=== PATIENT | female | born 1970 | race African-American/Black ===

== ENCOUNTER 2020-10-12 18:23 | Emergency (ER) | payer MEDICAID ==
[~2020-10-12] VITALS: Ht 170.2 cm; Wt 108.0 kg
[~2020-10-12 18:23] MED LIST: ABILIFY; IVER3TAB MT; SULF1TAB48 MT; TRAM50TA3 MT; TRAZADONE
[2020-10-12 18:33] VITALS: BP 150/82
== END 2020-10-12 18:54 | disposition left against medical advice (07) ==
LOC: ER 18:23
DX: R06.02 Shortness of breath (principal); Z53.21 Procedure and treatment not carried out due to patient leaving prior to being seen by health care provider

== ENCOUNTER 2021-01-28 23:23 | Emergency (ER) | payer MEDICAID ==
[~2021-01-28] VITALS: Ht 167.6 cm; Wt 113.0 kg
[2021-01-29 02:53] LABS: *BARBITURATES SCREEN URINE NEGATIVE (NEGATIVE); *BENZODIAZEPINES SCREEN URINE NEGATIVE (NEGATIVE); METHADONE URINE SCREEN NEGATIVE (NEGATIVE); OPIATES URINE SCREEN NEGATIVE (NEGATIVE)
[2021-01-29 02:54] LABS: CANNABINOID URINE SCREEN NEGATIVE (NEGATIVE)
[2021-01-29 02:54] LABS: BASOPHILS % 0.3 % (0.0-2.0); EOSINOPHILS % 3.4 % (0.0-5.0); HEMATOCRIT. 36.9 % (36.0-48.0); HEMOGLOBIN. 12.1 g/dL (12.0-16.0); LYMPHOCYTES % 31.8 % (20.0-50.0); MEAN CORPUSCULAR HEMOGLOBIN 30.7 pg (28.0-32.0); MEAN CORPUSCULAR VOLUME 93.7 fL (81.0-99.0); MEAN PLATELET VOLUME 6.7 fl (7.4-10.4); MONOCYTES % 10.3 % (2.0-8.0); NEUTROPHILS % 54.2 % (40.0-76.0); PLATELET 274 x1000/uL (130-400); RED BLOOD CELL COUNT 3.93 mill/uL (4.2-5.4); RED CELL DISTRIBUTION WIDTH 14.9 % (11.6-14.6)
[2021-01-29 03:02] LABS: CHLORIDE 105 mEq/L (98-107)
[2021-01-29 03:05] LABS: *AMPHETAMINES SCREEN URINE PRESUMTIVE POSITIVE (NEGATIVE); *COCAINE SCREEN URINE PRESUMTIVE POSITIVE (NEGATIVE); PHENCYCLIDINE URINE SCREEN PRESUMTIVE POSITIVE (NEGATIVE)
[2021-01-29 03:06] LABS: ETHANOL BLOOD < 10 mg/dL
[2021-01-29 05:35] VITALS: BP 125/78
== END 2021-01-29 05:37 | disposition home or self-care (01) ==
LOC: ER 23:49
DX: F16.10 Hallucinogen abuse, uncomplicated (principal); F15.10 Other stimulant abuse, uncomplicated; F14.10 Cocaine abuse, uncomplicated; E11.9 Type 2 diabetes mellitus without complications; I10 Essential (primary) hypertension; J45.909 Unspecified asthma, uncomplicated; Z20.822 Contact with and (suspected) exposure to COVID-19; Z86.59 Personal history of other mental and behavioral disorders; Z98.890 Other specified postprocedural states
CPT/HCPCS: 36415; 71045; 71250; 72128; 80053; 80305; 80320; 83880; 84484; 85025; 87426; 93005; 99285; G0480

== ENCOUNTER 2021-03-29 11:16 | Emergency (ER) | payer MEDICAID ==
[~2021-03-29] VITALS: Ht 167.6 cm; Wt 77.2 kg
[2021-03-29 11:23] VITALS: BP 150/80
[2021-03-29 12:07] LABS: CHLORIDE 105 mEq/L (98-107)
[2021-03-29 12:14] LABS: BASOPHILS % 0.3 % (0.0-2.0); EOSINOPHILS % 4.4 % (0.0-5.0); HEMATOCRIT. 39.2 % (36.0-48.0); HEMOGLOBIN. 12.7 g/dL (12.0-16.0); LYMPHOCYTES % 19.2 % (20.0-50.0); MEAN CORPUSCULAR HEMOGLOBIN 30.5 pg (28.0-32.0); MONOCYTES % 10.1 % (2.0-8.0); RED BLOOD CELL COUNT 4.17 mill/uL (4.2-5.4); RED CELL DISTRIBUTION WIDTH 15.8 % (11.6-14.6)
== END 2021-03-29 17:24 | disposition left against medical advice (07) ==
LOC: ER 11:16
DX: F41.9 Anxiety disorder, unspecified (principal); E11.9 Type 2 diabetes mellitus without complications; J45.909 Unspecified asthma, uncomplicated; Z86.59 Personal history of other mental and behavioral disorders; Z98.890 Other specified postprocedural states
CPT/HCPCS: 36415; 71045; 80053; 85025; 99284

== ENCOUNTER 2021-04-07 06:01 | Inpatient (IN) | payer MEDICAID ==
[~2021-04-07] VITALS: Ht 172.7 cm; Wt 92.5 kg
[2021-04-07 06:39] LABS: HEMATOCRIT. 40.2 % (36.0-48.0); HEMOGLOBIN. 13.6 g/dL (12.0-16.0); MEAN CORPUSCULAR HEMOGLOBIN 31.3 pg (28.0-32.0); MEAN CORPUSCULAR VOLUME 92.9 fL (81.0-99.0); PLATELET 308 x1000/uL (130-400); RED BLOOD CELL COUNT 4.33 mill/uL (4.2-5.4); RED CELL DISTRIBUTION WIDTH 16.2 % (11.6-14.6)
[2021-04-07] MEDS ORDERED: CLINDAMYCIN 600 MG in DEXTROSE 5% WATER 50 ML IV ONE (07:00)
[2021-04-07] MEDS ORDERED: CEFTRIAXONE 1 G PREMIX 50 ML IV ONE (07:00)
[2021-04-07 07:01] LABS: CLARITY URINE TURBID (CLEAR); COLOR URINE RED (YELLOW); KETONES URINE TRACE (NEGATIVE); LEUKOCYTE ESTERASE URINE 1+ (NEGATIVE); NITRITE URINE POSITIVE (NEGATIVE); OCCULT BLOOD URINE 3+ (NEGATIVE); PH URINE 5.5 (4.5-8.0); PROTEIN URINE 2+ (NEGATIVE); SPECIFIC GRAVITY URINE 1.026 (1.005-1.030)
[2021-04-07 07:14] LABS: PLATELET ESTIMATE NORMAL
[2021-04-07 07:37] LABS: *BARBITURATES SCREEN URINE NEGATIVE (NEGATIVE); *BENZODIAZEPINES SCREEN URINE NEGATIVE (NEGATIVE); *COCAINE SCREEN URINE PRESUMTIVE POSITIVE (NEGATIVE)
[2021-04-07 07:38] LABS: *AMPHETAMINES SCREEN URINE PRESUMTIVE POSITIVE (NEGATIVE); CANNABINOID URINE SCREEN PRESUMTIVE POSITIVE (NEGATIVE); METHADONE URINE SCREEN NEGATIVE (NEGATIVE); OPIATES URINE SCREEN NEGATIVE (NEGATIVE); PHENCYCLIDINE URINE SCREEN PRESUMTIVE POSITIVE (NEGATIVE)
[2021-04-07] MEDS ORDERED: CLINDAMYCIN 600MG PREMIX 50 ML IV NR (08:15)
[2021-04-07 08:42] LABS: BG BASE EXCESS 3.9 mmol/L (-2.0-2.0); BG CARBOXYHEMOGLOBIN 4.5 % (0.5-1.5); BG DEOXYHEMOGLOBIN 5.1 % (0.0-5.0); BG FRACTION INSPIRED OXYGEN 40; BG HCO3 ACT 33.4 mmol/L (22.0-26.0); BG METHEMOGLOBIN 0.2 % (0.0-1.5); BG OXYGEN SATURATION 94.6 % (92.0-98.5); BG OXYHEMOGLOBIN 90.2 % (94.0-97.0); BG PCO2 75.7 mmHg (35.0-45.0); BG PH 7.263 (7.350-7.450); BG PO2 81.8 mmHg (75.0-100.0); BG SAMPLE SITE RIGHT RADIAL; BG VENT MODE MASK - BIPAP
[2021-04-07 09:14] LABS: CHLORIDE 97 mEq/L (98-107)
[2021-04-07 09:21] LABS: ETHANOL BLOOD < 10 mg/dL
[2021-04-07] MEDS ORDERED: ALBUTEROL 6.7GM HFA INHALER ORI PRN (09:45)
[2021-04-07] MEDS ORDERED: CEFTRIAXONE 1 G PREMIX 50 ML IV SCH (09:45)
[2021-04-07] MEDS: DEXAMETHASONE 10 MG/ML VIAL IV SCH (10:26)
[2021-04-07 13:49] VITALS: BP 127/81
[2021-04-07 14:00] VITALS: BP 159/78
[2021-04-07] MEDS ORDERED: DEXTROSE 50% WATER 50ML SYRINGE IV PRN (14:30)
[2021-04-07] MEDS: FUROSEMIDE 40MG/4ML VIAL IVP SCH (15:31)
[2021-04-07] MEDS: ENOXAPARIN 30MG/0.3ML SYR SUBCUT SCH (15:31)
[2021-04-07 16:00] VITALS: BP 115/76
[2021-04-07] MEDS: BLOOD SUGAR DIAGNOSTIC STRIP TEST SCH ×2 (16:47→21:28)
[2021-04-07] MEDS: INSULIN LISPRO 100 UNITS/ML SUBCUT SCH ×2 (17:20→21:30)
[2021-04-07] MEDS: ACETAMINOPHEN 325MG TABLET PO PRN ×2 (17:58→21:32)
[2021-04-07 20:00] VITALS: BP 107/65
[2021-04-07] MEDS ORDERED: VANCOMYCIN 1,750 MG in DEXT 5% WATER 500 ML IV NR (23:00)
[2021-04-08] VITALS: BP 111/68
[2021-04-08] MEDS: ACETAMINOPHEN 325MG TABLET PO PRN (00:11)
[2021-04-08] MEDS: LORAZEPAM 2MG/ML CPJ IV PRN (00:55)
[2021-04-08 04:00] VITALS: BP 108/55
[2021-04-08] MEDS: ENOXAPARIN 30MG/0.3ML SYR SUBCUT SCH ×2 (05:57→17:10)
[2021-04-08] MEDS: INSULIN LISPRO 100 UNITS/ML SUBCUT SCH ×4 (05:57→21:26)
[2021-04-08] MEDS: BLOOD SUGAR DIAGNOSTIC STRIP TEST SCH ×4 (05:57→21:24)
[2021-04-08 08:00] VITALS: BP 109/57
[2021-04-08] MEDS: DEXAMETHASONE 10 MG/ML VIAL IV SCH (08:20)
[2021-04-08] MEDS: FUROSEMIDE 40MG/4ML VIAL IVP SCH (08:20)
[2021-04-08] MEDS: CEFTRIAXONE 1,000 MG in DEXTROSE 5% WATER 50 ML IV SCH (08:31)
[2021-04-08 09:29] LABS: HEMOGLOBIN. 12.8 g/dL (12.0-16.0); MEAN CORPUSCULAR HEMOGLOBIN 30.4 pg (28.0-32.0); MEAN PLATELET VOLUME 8.4 fl (7.4-10.4); PLATELET 310 x1000/uL (130-400); RED BLOOD CELL COUNT 4.21 mill/uL (4.2-5.4)
[2021-04-08 09:31] LABS: BG BASE EXCESS 9.5 mmol/L (-2.0-2.0); BG CARBOXYHEMOGLOBIN 1.4 % (0.5-1.5); BG DEOXYHEMOGLOBIN 8.1 % (0.0-5.0); BG FRACTION INSPIRED OXYGEN 40; BG HCO3 ACT 38.2 mmol/L (22.0-26.0); BG METHEMOGLOBIN 0.1 % (0.0-1.5); BG OXYGEN SATURATION 91.8 % (92.0-98.5); BG OXYHEMOGLOBIN 90.4 % (94.0-97.0); BG PCO2 74.2 mmHg (35.0-45.0); BG PO2 65.9 mmHg (75.0-100.0); BG SAMPLE SITE LEFT BRACHIAL; BG TOTAL RESPIRATORY RATE 32 b/min; BG VENT MODE MASK - BIPAP
[2021-04-08 09:40] LABS: CHLORIDE 98 mEq/L (98-107)
[2021-04-08] MEDS ORDERED: VANCOMYCIN 1G PREMIX 200 ML IV SCH (11:00)
[2021-04-08 12:00] VITALS: BP 150/64
[2021-04-08 14:52] LABS: PLATELET ESTIMATE NORMAL
[2021-04-08 16:00] VITALS: BP 120/88
[2021-04-08] MEDS: CHLORDIAZEPOXIDE 25MG CAPSULE PO SCH ×2 (16:19→21:16)
[2021-04-08 20:00] VITALS: BP 119/71
[2021-04-08] MEDS: ONDANSETRON HCL 4MG/2ML INJ IV PRN (21:15)
[2021-04-08] MEDS: GUAIFENESIN 600MG ER TABLET PO SCH (21:16)
[2021-04-09] VITALS: BP 95/55
[2021-04-09 04:42] VITALS: BP 102/57
[2021-04-09] MEDS: CHLORDIAZEPOXIDE 25MG CAPSULE PO SCH ×2 (06:09→14:37)
[2021-04-09] MEDS: ENOXAPARIN 30MG/0.3ML SYR SUBCUT SCH ×2 (06:10→17:25)
[2021-04-09] MEDS: BLOOD SUGAR DIAGNOSTIC STRIP TEST SCH ×4 (06:16→20:19)
[2021-04-09] MEDS: INSULIN LISPRO 100 UNITS/ML SUBCUT SCH ×4 (06:16→21:07)
[2021-04-09 08:00] VITALS: BP 110/66
[2021-04-09] MEDS: GUAIFENESIN 600MG ER TABLET PO SCH ×2 (08:39→21:06)
[2021-04-09] MEDS: DEXAMETHASONE 10 MG/ML VIAL IV SCH (08:39)
[2021-04-09] MEDS: FUROSEMIDE 40MG/4ML VIAL IVP SCH (08:39)
[2021-04-09] MEDS: CEFTRIAXONE 1,000 MG in DEXTROSE 5% WATER 50 ML IV SCH (08:40)
[2021-04-09] MEDS: LORAZEPAM 2MG/ML CPJ IV PRN ×2 (08:43→21:06)
[2021-04-09] MEDS: VANCOMYCIN 1G PREMIX 200 ML IV SCH (08:44)
[2021-04-09 09:23] LABS: HEMATOCRIT. 36.4 % (36.0-48.0); HEMOGLOBIN. 11.8 g/dL (12.0-16.0); MEAN CORPUSCULAR HEMOGLOBIN 30.7 pg (28.0-32.0); MEAN PLATELET VOLUME 8.1 fl (7.4-10.4); PLATELET 397 x1000/uL (130-400); RED BLOOD CELL COUNT 3.83 mill/uL (4.2-5.4); RED CELL DISTRIBUTION WIDTH 15.9 % (11.6-14.6)
[2021-04-09 09:41] LABS: CHLORIDE 97 mEq/L (98-107)
[2021-04-09 11:44] LABS: BG BASE EXCESS 11.8 mmol/L (-2.0-2.0); BG CARBOXYHEMOGLOBIN 0.8 % (0.5-1.5); BG DEOXYHEMOGLOBIN 6.3 % (0.0-5.0); BG FRACTION INSPIRED OXYGEN 40; BG HCO3 ACT 40.4 mmol/L (22.0-26.0); BG METHEMOGLOBIN 0.3 % (0.0-1.5); BG OXYGEN SATURATION 93.6 % (92.0-98.5); BG OXYHEMOGLOBIN 92.6 % (94.0-97.0); BG PCO2 73.6 mmHg (35.0-45.0); BG PH 7.357 (7.350-7.450); BG PO2 71.9 mmHg (75.0-100.0); BG SAMPLE SITE LEFT RADIAL; BG TOTAL HEMOGLOBIN 12.9 g/dL (12.0-18.0); BG TOTAL RESPIRATORY RATE 28 b/min; BG VENT MODE MASK - BIPAP
[2021-04-09 12:00] VITALS: BP 115/88
[2021-04-09] MEDS: ACETAMINOPHEN 325MG TABLET PO PRN (12:27)
[2021-04-09 16:00] VITALS: BP 117/76
[2021-04-09 17:13] LABS: PLATELET ESTIMATE NORMAL
[2021-04-09 19:43] VITALS: BP 122/76
[2021-04-10 00:23] VITALS: BP 148/87
[2021-04-10] MEDS: ACETAMINOPHEN 325MG TABLET PO PRN ×2 (00:31→22:12)
[2021-04-10] MEDS: VANCOMYCIN 1G PREMIX 200 ML IV SCH (03:51)
[2021-04-10 04:02] VITALS: BP 112/69
[2021-04-10] MEDS: BLOOD SUGAR DIAGNOSTIC STRIP TEST SCH ×4 (05:54→21:00)
[2021-04-10] MEDS: INSULIN LISPRO 100 UNITS/ML SUBCUT SCH ×4 (05:54→21:00)
[2021-04-10] MEDS: ENOXAPARIN 30MG/0.3ML SYR SUBCUT SCH ×2 (06:00→17:04)
[2021-04-10 08:00] VITALS: BP 127/80
[2021-04-10] MEDS: DEXAMETHASONE 10 MG/ML VIAL IV SCH (08:20)
[2021-04-10] MEDS: FUROSEMIDE 40MG/4ML VIAL IVP SCH (08:20)
[2021-04-10] MEDS: LORAZEPAM 2MG/ML CPJ IV PRN ×2 (08:20→17:58)
[2021-04-10] MEDS: CEFTRIAXONE 1,000 MG in DEXTROSE 5% WATER 50 ML IV SCH (08:20)
[2021-04-10] MEDS: GUAIFENESIN 600MG ER TABLET PO SCH ×2 (08:20→22:12)
[2021-04-10 08:38] LABS: CHLORIDE 96 mEq/L (98-107)
[2021-04-10 12:00] VITALS: BP 110/59
[2021-04-10 16:00] VITALS: BP 141/64
[2021-04-10] MEDS ORDERED: VANCOMYCIN 1G PREMIX 200 ML IV SCH (18:00)
[2021-04-10 20:00] VITALS: BP 126/78
[2021-04-11] VITALS: BP 124/79
[2021-04-11] MEDS: LORAZEPAM 2MG/ML CPJ IV PRN (00:58)
[2021-04-11 04:00] VITALS: BP 123/75
[2021-04-11] MEDS: ENOXAPARIN 30MG/0.3ML SYR SUBCUT SCH ×2 (06:25→18:00)
[2021-04-11] MEDS: INSULIN LISPRO 100 UNITS/ML SUBCUT SCH ×4 (06:25→20:47)
[2021-04-11] MEDS: BLOOD SUGAR DIAGNOSTIC STRIP TEST SCH ×5 (06:25→20:47)
[2021-04-11 08:00] VITALS: BP 140/90
[2021-04-11] MEDS: GUAIFENESIN 600MG ER TABLET PO SCH ×2 (09:00→20:56)
[2021-04-11] MEDS: CEFTRIAXONE 1,000 MG in DEXTROSE 5% WATER 50 ML IV SCH (09:00)
[2021-04-11] MEDS: DEXAMETHASONE 10 MG/ML VIAL IV SCH (09:00)
[2021-04-11] MEDS: FUROSEMIDE 40MG/4ML VIAL IVP SCH (09:00)
[2021-04-11 09:01] LABS: BG BASE EXCESS 15.4 mmol/L (-2.0-2.0); BG CARBOXYHEMOGLOBIN 0.3 % (0.5-1.5); BG DEOXYHEMOGLOBIN 2.5 % (0.0-5.0); BG FRACTION INSPIRED OXYGEN 40; BG HCO3 ACT 42.3 mmol/L (22.0-26.0); BG METHEMOGLOBIN 0.1 % (0.0-1.5); BG OXYGEN SATURATION 97.5 % (92.0-98.5); BG OXYHEMOGLOBIN 97.1 % (94.0-97.0); BG PCO2 62.2 mmHg (35.0-45.0); BG PO2 97.9 mmHg (75.0-100.0); BG SAMPLE SITE RIGHT RADIAL; BG TOTAL HEMOGLOBIN 12.7 g/dL (12.0-18.0); BG TOTAL RESPIRATORY RATE 26 b/min; BG VENT MODE MASK - BIPAP
[2021-04-11 12:00] VITALS: BP 134/83
[2021-04-11 16:00] VITALS: BP 138/82
[2021-04-11 20:00] VITALS: BP 125/79
[2021-04-11] MEDS: ACETAMINOPHEN 325MG TABLET PO PRN (20:56)
[2021-04-12] VITALS: BP 110/59
[2021-04-12] MEDS: LORAZEPAM 2MG/ML CPJ IV PRN ×3 (00:07→22:50)
[2021-04-12 04:00] VITALS: BP 138/87
[2021-04-12] MEDS: ENOXAPARIN 30MG/0.3ML SYR SUBCUT SCH ×2 (06:16→18:04)
[2021-04-12] MEDS: BLOOD SUGAR DIAGNOSTIC STRIP TEST SCH ×4 (06:49→21:00)
[2021-04-12] MEDS: INSULIN LISPRO 100 UNITS/ML SUBCUT SCH ×4 (07:40→21:00)
[2021-04-12 07:48] VITALS: BP 140/81
[2021-04-12] MEDS: DEXAMETHASONE 10 MG/ML VIAL IV SCH (08:15)
[2021-04-12] MEDS: FUROSEMIDE 40MG/4ML VIAL IVP SCH (08:15)
[2021-04-12] MEDS: GUAIFENESIN 600MG ER TABLET PO SCH ×2 (08:15→21:28)
[2021-04-12 12:00] VITALS: BP 124/82
[2021-04-12] MEDS ORDERED: LIDOCAINE HCL/PF 1% 2ML VIAL ONE (12:57)
[2021-04-12 13:34] LABS: BG BASE EXCESS 19.5 mmol/L (-2.0-2.0); BG DEOXYHEMOGLOBIN 22.7 % (0.0-5.0); BG HCO3 ACT 49.2 mmol/L (22.0-26.0); BG METHEMOGLOBIN 0.3 % (0.0-1.5); BG PCO2 82.9 mmHg (35.0-45.0); BG PH 7.391 (7.350-7.450); BG PO2 42.2 mmHg (75.0-100.0); BG SAMPLE SITE RIGHT RADIAL; BG TOTAL HEMOGLOBIN 13.8 g/dL (12.0-18.0); BG VENT MODE ROOM AIR
[2021-04-12] MEDS: CEFTRIAXONE 1,000 MG in DEXTROSE 5% WATER 50 ML IV SCH (15:08)
[2021-04-12 16:27] VITALS: BP 128/76
[2021-04-12 17:44] LABS: BG BASE EXCESS 16.4 mmol/L (-2.0-2.0); BG CARBOXYHEMOGLOBIN 0.6 % (0.5-1.5); BG DEOXYHEMOGLOBIN 2.9 % (0.0-5.0); BG HCO3 ACT 47.3 mmol/L (22.0-26.0); BG METHEMOGLOBIN 0.3 % (0.0-1.5); BG OXYGEN SATURATION 97.1 % (92.0-98.5); BG OXYHEMOGLOBIN 96.2 % (94.0-97.0); BG PCO2 93.6 mmHg (35.0-45.0); BG PH 7.321 (7.350-7.450); BG PO2 104.3 mmHg (75.0-100.0); BG SAMPLE SITE RIGHT RADIAL; BG TOTAL HEMOGLOBIN 13.8 g/dL (12.0-18.0); BG VENT MODE MASK - SIMPLE
[2021-04-12 20:46] VITALS: BP 122/57
[2021-04-12] MEDS: OLANZAPINE 5MG TABLET ODT PO SCH (21:00)
[2021-04-13] VITALS: BP 136/81
[2021-04-13 04:00] VITALS: BP 119/82
[2021-04-13] MEDS: ENOXAPARIN 30MG/0.3ML SYR SUBCUT SCH ×2 (05:10→17:00)
[2021-04-13] MEDS: BLOOD SUGAR DIAGNOSTIC STRIP TEST SCH ×4 (07:01→20:46)
[2021-04-13] MEDS: LORAZEPAM 2MG/ML CPJ IV PRN ×2 (07:41→16:54)
[2021-04-13] MEDS: INSULIN LISPRO 100 UNITS/ML SUBCUT SCH ×4 (07:48→20:46)
[2021-04-13 08:00] VITALS: BP 141/87
[2021-04-13] MEDS: GUAIFENESIN 600MG ER TABLET PO SCH ×2 (08:15→20:45)
[2021-04-13] MEDS: OLANZAPINE 5MG TABLET ODT PO SCH ×2 (08:15→20:45)
[2021-04-13] MEDS: DEXAMETHASONE 10 MG/ML VIAL IV SCH (08:16)
[2021-04-13] MEDS: FUROSEMIDE 40MG/4ML VIAL IVP SCH (08:16)
[2021-04-13 09:38] LABS: BG BASE EXCESS 15.4 mmol/L (-2.0-2.0); BG CARBOXYHEMOGLOBIN 0.4 % (0.5-1.5); BG DEOXYHEMOGLOBIN 2.1 % (0.0-5.0); BG FRACTION INSPIRED OXYGEN 60; BG HCO3 ACT 43.7 mmol/L (22.0-26.0); BG METHEMOGLOBIN 0.3 % (0.0-1.5); BG OXYGEN SATURATION 97.9 % (92.0-98.5); BG OXYHEMOGLOBIN 97.2 % (94.0-97.0); BG PCO2 71.2 mmHg (35.0-45.0); BG PH 7.406 (7.350-7.450); BG PO2 105.7 mmHg (75.0-100.0); BG SAMPLE SITE RIGHT RADIAL; BG TOTAL HEMOGLOBIN 13.7 g/dL (12.0-18.0); BG VENT MODE MASK - SIMPLE
[2021-04-13 12:00] VITALS: BP 126/83
[2021-04-13 16:00] VITALS: BP 129/78
[2021-04-13 20:00] VITALS: BP 121/81
[2021-04-14] VITALS: BP 121/77
[2021-04-14 04:00] VITALS: BP 110/61
[2021-04-14] MEDS: ENOXAPARIN 30MG/0.3ML SYR SUBCUT SCH (06:00)
[2021-04-14] MEDS: BLOOD SUGAR DIAGNOSTIC STRIP TEST SCH ×4 (07:28→21:08)
[2021-04-14] MEDS: INSULIN LISPRO 100 UNITS/ML SUBCUT SCH ×4 (07:29→21:00)
[2021-04-14 08:00] VITALS: BP 108/71
[2021-04-14 08:05] LABS: INR 1.1; PROTHROMBIN TIME 12.1 sec (9.6-11.0)
[2021-04-14] MEDS: OLANZAPINE 5MG TABLET ODT PO SCH ×2 (09:04→21:08)
[2021-04-14] MEDS: FUROSEMIDE 40MG/4ML VIAL IVP SCH (09:04)
[2021-04-14] MEDS: DEXAMETHASONE 10 MG/ML VIAL IV SCH (09:05)
[2021-04-14] MEDS: GUAIFENESIN 600MG ER TABLET PO SCH ×2 (09:05→21:08)
[2021-04-14 12:00] VITALS: BP 111/65
[2021-04-14 16:00] VITALS: BP 124/56
[2021-04-14] MEDS: ACETAMINOPHEN 325MG TABLET PO PRN (16:41)
[2021-04-14] MEDS: ONDANSETRON HCL 4MG/2ML INJ IV PRN (18:31)
[2021-04-14] MEDS ORDERED: HYDROCODONE/ACETAMINOPHEN 5/325MG TABLET PO NR (19:30)
[2021-04-14 20:00] VITALS: BP 147/93
[2021-04-15] VITALS: BP 139/74
[2021-04-15 04:00] VITALS: BP 130/83
[2021-04-15] MEDS: BLOOD SUGAR DIAGNOSTIC STRIP TEST SCH ×4 (07:24→20:42)
[2021-04-15] MEDS: INSULIN LISPRO 100 UNITS/ML SUBCUT SCH ×4 (07:55→20:42)
[2021-04-15] MEDS: CEFTRIAXONE 2 G in DEXTROSE 5% WATER 50 ML IV SCH ×2 (07:55→20:41)
[2021-04-15 08:00] VITALS: BP 130/79
[2021-04-15] MEDS ORDERED: LIDOCAINE HCL 1% 20ML VIAL (Pyxis) INJ ONE (08:41)
[2021-04-15] MEDS: GUAIFENESIN 600MG ER TABLET PO SCH ×2 (09:00→20:41)
[2021-04-15] MEDS: OLANZAPINE 5MG TABLET ODT PO SCH ×2 (09:00→20:41)
[2021-04-15] MEDS: FUROSEMIDE 40MG/4ML VIAL IVP SCH (09:20)
[2021-04-15] MEDS: DEXAMETHASONE 10 MG/ML VIAL IV SCH (09:21)
[2021-04-15] MEDS: LORAZEPAM 2MG/ML CPJ IV PRN (11:26)
[2021-04-15] MEDS ORDERED: SODIUM BICARBONATE 4% (2.4MEQ) 5ML VIAL IV ONE (11:36)
[2021-04-15 12:00] VITALS: BP 130/76
[2021-04-15 16:00] VITALS: BP 116/47
[2021-04-15 20:00] VITALS: BP 117/67
[2021-04-15 20:53] LABS: BASOPHILS % 0.7 % (0.0-2.0); EOSINOPHILS % 0.3 % (0.0-5.0); HEMATOCRIT. 38.7 % (36.0-48.0); HEMOGLOBIN. 12.4 g/dL (12.0-16.0); LYMPHOCYTES % 9.5 % (20.0-50.0); MEAN CORPUSCULAR HEMOGLOBIN 30.2 pg (28.0-32.0); MEAN PLATELET VOLUME 7.4 fl (7.4-10.4); MONOCYTES % 5.8 % (2.0-8.0); NEUTROPHILS % 83.7 % (40.0-76.0); PLATELET 569 x1000/uL (130-400); RED BLOOD CELL COUNT 4.12 mill/uL (4.2-5.4); RED CELL DISTRIBUTION WIDTH 14.8 % (11.6-14.6)
[2021-04-15 21:00] LABS: CHLORIDE 89 mEq/L (98-107)
[2021-04-16] VITALS: BP 114/65
[2021-04-16] MEDS: LORAZEPAM 2MG/ML CPJ IV PRN (00:03)
[2021-04-16 04:00] VITALS: BP 117/67
[2021-04-16] MEDS: BLOOD SUGAR DIAGNOSTIC STRIP TEST SCH ×4 (07:39→21:00)
[2021-04-16] MEDS: OLANZAPINE 5MG TABLET ODT PO SCH ×2 (09:01→20:36)
[2021-04-16] MEDS: DEXAMETHASONE 10 MG/ML VIAL IV SCH (09:01)
[2021-04-16] MEDS: INSULIN LISPRO 100 UNITS/ML SUBCUT SCH ×4 (09:01→20:42)
[2021-04-16] MEDS: FUROSEMIDE 40MG/4ML VIAL IVP SCH (09:01)
[2021-04-16] MEDS: GUAIFENESIN 600MG ER TABLET PO SCH ×2 (09:01→20:36)
[2021-04-16] MEDS ORDERED: AMOX-424 MT (09:52)
[2021-04-16] MEDS ORDERED: ALBU18HF2 IH (11:42)
[2021-04-16] MEDS ORDERED: FURO-151 MT (11:42)
[2021-04-16 12:00] VITALS: BP 112/50
[2021-04-16 16:00] VITALS: BP 134/81
[2021-04-16 20:00] VITALS: BP 130/73
[2021-04-16] MEDS: CEFTRIAXONE 2 G in DEXTROSE 5% WATER 50 ML IV SCH (20:36)
[2021-04-16] MEDS: ACETAMINOPHEN 325MG TABLET PO PRN (20:36)
[2021-04-17] VITALS: BP 113/53
[2021-04-17 04:00] VITALS: BP 120/60
[2021-04-17] MEDS: BLOOD SUGAR DIAGNOSTIC STRIP TEST SCH (06:04)
[2021-04-17] MEDS: INSULIN LISPRO 100 UNITS/ML SUBCUT SCH (06:04)
[2021-04-17 08:00] VITALS: BP 124/82
[2021-04-17] MEDS: FUROSEMIDE 40MG/4ML VIAL IVP SCH (09:00)
[2021-04-17] MEDS: OLANZAPINE 5MG TABLET ODT PO SCH (09:01)
[2021-04-17] MEDS: DEXAMETHASONE 10 MG/ML VIAL IV SCH (09:01)
[2021-04-17] MEDS: GUAIFENESIN 600MG ER TABLET PO SCH (09:01)
== END 2021-04-17 10:07 | disposition home health service (06) | DRG 720 ==
LOC: ER 06:07 → 7EST 07:44 → 7WST 04-11 16:52
PROVIDERS: ADMIT Internal Medicine; ATTEND Internal Medicine
PROC: 5A09557 Assistance with Respiratory Ventilation, Greater than 96 Consecutive Hours, Continuous Positive Airway Pressure (ICD-10-PCS; 2021-04-07)
PROC: 0W993ZZ Drainage of Right Pleural Cavity, Percutaneous Approach (ICD-10-PCS; principal; 2021-04-15)
DX: A41.89 Other specified sepsis (principal); N17.0 Acute kidney failure with tubular necrosis; J12.82 Pneumonia due to coronavirus disease 2019; J69.0 Pneumonitis due to inhalation of food and vomit; E43 Unspecified severe protein-calorie malnutrition; J96.01 Acute respiratory failure with hypoxia; J96.02 Acute respiratory failure with hypercapnia; U07.1 COVID-19; D68.59 Other primary thrombophilia; J91.8 Pleural effusion in other conditions classified elsewhere; J68.0 Bronchitis and pneumonitis due to chemicals, gases, fumes and vapors; E87.8 Other disorders of electrolyte and fluid balance, not elsewhere classified; E11.9 Type 2 diabetes mellitus without complications; T40.5X1A Poisoning by cocaine, accidental (unintentional), initial encounter; E66.9 Obesity, unspecified; F14.10 Cocaine abuse, uncomplicated; F17.210 Nicotine dependence, cigarettes, uncomplicated; F15.10 Other stimulant abuse, uncomplicated; F16.10 Hallucinogen abuse, uncomplicated; F12.10 Cannabis abuse, uncomplicated; I11.0 Hypertensive heart disease with heart failure; I50.9 Heart failure, unspecified; F20.9 Schizophrenia, unspecified; F31.9 Bipolar disorder, unspecified; F41.9 Anxiety disorder, unspecified; F29 Unspecified psychosis not due to a substance or known physiological condition; T46.5X6A Underdosing of other antihypertensive drugs, initial encounter; J45.909 Unspecified asthma, uncomplicated; N39.0 Urinary tract infection, site not specified; E87.1 Hypo-osmolality and hyponatremia; Y92.89 Other specified places as the place of occurrence of the external cause; Z68.31 Body mass index [BMI] 31.0-31.9, adult; Z71.51 Drug abuse counseling and surveillance of drug abuser
CPT/HCPCS: 32555; 36415; 36600; 71045; 71250; 80048; 80053; 80202; 80305; 80320; 81003; 82040; 82375; 82728; 82805; 82962; 83036; 83605; 83615; 83880; 84145; 84484; 85025; 85379; 86140; 87077; 87186; 87426; 87804; 88108; 88312; 93005; 94660; 99291; C1893; J0696; J1100; J1650; J1815; J1940; J2060; J2405; J3370; J3490; J7040; J7060; G0480

== ENCOUNTER 2021-05-06 22:00 | Emergency (ER) | payer MEDICAID ==
[~2021-05-06] VITALS: Ht 165.1 cm; Wt 114.0 kg
[~2021-05-06 22:00] MED LIST changes: +ALBU18HF2 IH; +AMOX-424 MT; +FURO-151 MT; -IVER3TAB MT; -SULF1TAB48 MT
[2021-05-06 22:30] VITALS: BP 176/92
[2021-05-06] MEDS ORDERED: ASPIRIN 81MG TABLET PO ONE (23:00)
[2021-05-06 23:49] LABS: *AMPHETAMINES SCREEN URINE PRESUMTIVE POSITIVE (NEGATIVE); *BARBITURATES SCREEN URINE NEGATIVE (NEGATIVE); CANNABINOID URINE SCREEN NEGATIVE (NEGATIVE); PHENCYCLIDINE URINE SCREEN PRESUMTIVE POSITIVE (NEGATIVE)
[2021-05-06 23:51] LABS: *BENZODIAZEPINES SCREEN URINE NEGATIVE (NEGATIVE); *COCAINE SCREEN URINE PRESUMTIVE POSITIVE (NEGATIVE); METHADONE URINE SCREEN NEGATIVE (NEGATIVE); OPIATES URINE SCREEN NEGATIVE (NEGATIVE)
[2021-05-06 23:54] LABS: HEMATOCRIT. 37.5 % (36.0-48.0); HEMOGLOBIN. 12.1 g/dL (12.0-16.0); MEAN CORPUSCULAR HEMOGLOBIN 29.5 pg (28.0-32.0); MEAN CORPUSCULAR VOLUME 91.3 fL (81.0-99.0); MEAN PLATELET VOLUME 7.7 fl (7.4-10.4); RED BLOOD CELL COUNT 4.11 mill/uL (4.2-5.4); RED CELL DISTRIBUTION WIDTH 15.1 % (11.6-14.6)
[2021-05-07 00:02] LABS: CHLORIDE 100 mEq/L (98-107)
[2021-05-07 00:07] LABS: ETHANOL BLOOD < 10 mg/dL
[2021-05-07 00:22] LABS: PLATELET 363 x1000/uL (130-400)
[2021-05-07 02:43] LABS: PLATELET ESTIMATE NORMAL
== END 2021-05-07 03:40 | disposition home or self-care (01) ==
LOC: ER 22:00
DX: R07.89 Other chest pain (principal); F17.290 Nicotine dependence, other tobacco product, uncomplicated; F14.10 Cocaine abuse, uncomplicated; F15.10 Other stimulant abuse, uncomplicated; F16.10 Hallucinogen abuse, uncomplicated; Z86.59 Personal history of other mental and behavioral disorders
CPT/HCPCS: 36415; 71045; 80053; 80305; 80320; 83880; 84484; 85025; 93005; 99285; 99406; G0480

== ENCOUNTER 2021-06-18 02:52 | Emergency (ER) | payer MEDICAID ==
[~2021-06-18] VITALS: Ht 177.8 cm; Wt 85.0 kg
[2021-06-18] MEDS ORDERED: ASPIRIN 81MG TABLET PO ONE (03:15)
[2021-06-18 03:46] LABS: BASOPHILS % 0.4 % (0.0-2.0); EOSINOPHILS % 2.9 % (0.0-5.0); HEMATOCRIT. 38.7 % (36.0-48.0); HEMOGLOBIN. 12.7 g/dL (12.0-16.0); LYMPHOCYTES % 26.4 % (20.0-50.0); MEAN CORPUSCULAR HEMOGLOBIN 30.1 pg (28.0-32.0); MEAN CORPUSCULAR VOLUME 91.7 fL (81.0-99.0); MEAN PLATELET VOLUME 7.2 fl (7.4-10.4); NEUTROPHILS % 61.3 % (40.0-76.0); PLATELET 281 x1000/uL (130-400); RED BLOOD CELL COUNT 4.22 mill/uL (4.2-5.4); RED CELL DISTRIBUTION WIDTH 16.7 % (11.6-14.6)
[2021-06-18 03:56] LABS: CHLORIDE 103 mEq/L (98-107)
[2021-06-18 04:00] LABS: ETHANOL BLOOD 29 mg/dL
[2021-06-18 04:14] LABS: *AMPHETAMINES SCREEN URINE NEGATIVE (NEGATIVE); *BARBITURATES SCREEN URINE NEGATIVE (NEGATIVE); *BENZODIAZEPINES SCREEN URINE NEGATIVE (NEGATIVE); *COCAINE SCREEN URINE PRESUMTIVE POSITIVE (NEGATIVE); METHADONE URINE SCREEN NEGATIVE (NEGATIVE); OPIATES URINE SCREEN NEGATIVE (NEGATIVE); PHENCYCLIDINE URINE SCREEN PRESUMTIVE POSITIVE (NEGATIVE)
[2021-06-18 04:15] LABS: CANNABINOID URINE SCREEN NEGATIVE (NEGATIVE)
[2021-06-18 05:02] VITALS: BP 128/81
== END 2021-06-18 05:52 | disposition home or self-care (01) ==
LOC: ER 02:52
DX: T40.5X1A Poisoning by cocaine, accidental (unintentional), initial encounter (principal); T43.621A Poisoning by amphetamines, accidental (unintentional), initial encounter; T40.991A Poisoning by other psychodysleptics [hallucinogens], accidental (unintentional), initial encounter; R07.89 Other chest pain; R45.851 Suicidal ideations; F14.188 Cocaine abuse with other cocaine-induced disorder; F15.188 Other stimulant abuse with other stimulant-induced disorder; F16.188 Hallucinogen abuse with other hallucinogen-induced disorder; Y92.89 Other specified places as the place of occurrence of the external cause; R03.0 Elevated blood-pressure reading, without diagnosis of hypertension; F20.9 Schizophrenia, unspecified; F31.9 Bipolar disorder, unspecified
CPT/HCPCS: 36415; 71045; 80053; 80305; 80320; 83880; 84484; 85025; 93005; 99285; G0480

== ENCOUNTER 2021-08-14 09:03 | Emergency (ER) | payer MEDICAID ==
[~2021-08-14] VITALS: Ht 170.2 cm; Wt 80.0 kg
[2021-08-14] MEDS ORDERED: ACETAMINOPHEN 325MG TABLET PO STA (10:53)
[2021-08-14 11:13] LABS: CLARITY URINE CLEAR (CLEAR); COLOR URINE YELLOW (YELLOW); KETONES URINE NEGATIVE (NEGATIVE); LEUKOCYTE ESTERASE URINE 1+ (NEGATIVE); NITRITE URINE NEGATIVE (NEGATIVE); OCCULT BLOOD URINE NEGATIVE (NEGATIVE); PH URINE 5.5 (4.5-8.0); PROTEIN URINE NEGATIVE (NEGATIVE); SPECIFIC GRAVITY URINE 1.016 (1.005-1.030); UROBILINOGEN URINE 0.2 E.U./dL (0.2-1.0)
[2021-08-14 11:14] LABS: HCG SCREEN NEGATIVE
[2021-08-14 11:15] LABS: CHLORIDE 102 mEq/L (98-107)
[2021-08-14 11:16] LABS: BASOPHILS % 0.3 % (0.0-2.0); EOSINOPHILS % 7.9 % (0.0-5.0); HEMATOCRIT. 39.9 % (36.0-48.0); HEMOGLOBIN. 13.1 g/dL (12.0-16.0); MEAN CORPUSCULAR HEMOGLOBIN 30.5 pg (28.0-32.0); MEAN CORPUSCULAR VOLUME 92.7 fL (81.0-99.0); MEAN PLATELET VOLUME 7.8 fl (7.4-10.4); MONOCYTES % 10.5 % (2.0-8.0); NEUTROPHILS % 52.3 % (40.0-76.0); PLATELET 272 x1000/uL (130-400); RED CELL DISTRIBUTION WIDTH 15.6 % (11.6-14.6)
[2021-08-14 11:28] LABS: ETHANOL BLOOD < 10 mg/dL
[2021-08-14] MEDS ORDERED: PERM60CR4 TP (12:53)
[2021-08-14] MEDS ORDERED: CIPR-263 MT (12:55)
[2021-08-14 13:00] VITALS: BP 150/76
== END 2021-08-14 13:25 | disposition home or self-care (01) ==
LOC: ER 09:03
DX: M79.18 Myalgia, other site (principal); N39.0 Urinary tract infection, site not specified; F31.9 Bipolar disorder, unspecified; E11.9 Type 2 diabetes mellitus without complications; F20.9 Schizophrenia, unspecified; F14.10 Cocaine abuse, uncomplicated; Z79.899 Other long term (current) drug therapy
CPT/HCPCS: 36415; 80053; 80307; 80320; 80329; 81003; 83605; 84443; 84484; 84703; 85025; 99283; G0480

== ENCOUNTER 2021-09-07 01:56 | Emergency (ER) | payer MEDICAID ==
[~2021-09-07] VITALS: Ht 162.6 cm; Wt 76.0 kg
[~2021-09-07 01:56] MED LIST changes: +CIPR-263 MT; +PERM60CR4 TP
[2021-09-07 02:00] VITALS: BP 146/82
== END 2021-09-07 04:28 | disposition home or self-care (01) ==
LOC: ER 01:56
DX: F14.10 Cocaine abuse, uncomplicated (principal); Z79.899 Other long term (current) drug therapy
CPT/HCPCS: 99283

== ENCOUNTER 2021-09-20 01:56 | Emergency (ER) | payer MEDICAID ==
[~2021-09-20] VITALS: Ht 177.8 cm; Wt 115.0 kg
[2021-09-20 01:58] VITALS: BP 143/94
[2021-09-20] MEDS ORDERED: ACETAMINOPHEN 325MG TABLET PO ONE (11:30)
[2021-09-20] MEDS ORDERED: PERM60CR4 TP (11:33)
[2021-09-20] MEDS ORDERED: PERMETHRIN 5% CREAM 60GM TOP ONE (14:15)
== END 2021-09-20 16:00 | disposition home or self-care (01) ==
LOC: ER 01:56
DX: B86 Scabies (principal); F14.10 Cocaine abuse, uncomplicated; J44.1 Chronic obstructive pulmonary disease with (acute) exacerbation; E11.9 Type 2 diabetes mellitus without complications; I10 Essential (primary) hypertension; Z79.899 Other long term (current) drug therapy; Z86.59 Personal history of other mental and behavioral disorders
CPT/HCPCS: 99283

== ENCOUNTER 2021-10-09 11:23 | Emergency (ER) | payer MEDICAID ==
[~2021-10-09] VITALS: Ht 172.7 cm; Wt 89.0 kg
[2021-10-09] MEDS ORDERED: KETOROLAC 30MG/ML VIAL IV STA (11:32)
[2021-10-09] MEDS ORDERED: SODIUM CHLORIDE 0.9% 1,000 ML IV ONE (11:45)
[2021-10-09 12:26] LABS: BASOPHILS % 0.2 % (0.0-2.0); EOSINOPHILS % 3.6 % (0.0-5.0); HEMATOCRIT. 35.4 % (36.0-48.0); HEMOGLOBIN. 11.6 g/dL (12.0-16.0); LYMPHOCYTES % 13.9 % (20.0-50.0); MEAN CORPUSCULAR VOLUME 94.6 fL (81.0-99.0); MEAN PLATELET VOLUME 7.1 fl (7.4-10.4); MONOCYTES % 11.5 % (2.0-8.0); NEUTROPHILS % 70.8 % (40.0-76.0); PLATELET 291 x1000/uL (130-400); RED BLOOD CELL COUNT 3.74 mill/uL (4.2-5.4); RED CELL DISTRIBUTION WIDTH 15.1 % (11.6-14.6)
[2021-10-09 12:37] LABS: CHLORIDE 103 mEq/L (98-107)
[2021-10-09 12:45] LABS: CREATINE KINASE 202 IU/L (26-192); ETHANOL BLOOD < 10 mg/dL
[2021-10-09 13:02] LABS: CLARITY URINE CLEAR (CLEAR); COLOR URINE YELLOW (YELLOW); KETONES URINE NEGATIVE (NEGATIVE); LEUKOCYTE ESTERASE URINE NEGATIVE (NEGATIVE); NITRITE URINE NEGATIVE (NEGATIVE); OCCULT BLOOD URINE NEGATIVE (NEGATIVE); PROTEIN URINE NEGATIVE (NEGATIVE); SPECIFIC GRAVITY URINE 1.029 (1.005-1.030)
[2021-10-09 13:25] LABS: *AMPHETAMINES SCREEN URINE NEGATIVE (NEGATIVE); *BARBITURATES SCREEN URINE NEGATIVE (NEGATIVE); *BENZODIAZEPINES SCREEN URINE NEGATIVE (NEGATIVE); *COCAINE SCREEN URINE PRESUMTIVE POSITIVE (NEGATIVE); CANNABINOID URINE SCREEN NEGATIVE (NEGATIVE); METHADONE URINE SCREEN NEGATIVE (NEGATIVE); OPIATES URINE SCREEN NEGATIVE (NEGATIVE); PHENCYCLIDINE URINE SCREEN PRESUMTIVE POSITIVE (NEGATIVE)
[2021-10-09] MEDS ORDERED: IBUP-2028 MT (14:25)
[2021-10-09] MEDS ORDERED: ACETAMINOPHEN 325MG TABLET PO ONE (14:30)
[2021-10-09 14:55] VITALS: BP 130/97
== END 2021-10-09 16:12 | disposition home or self-care (01) ==
LOC: ER 11:32
DX: F14.10 Cocaine abuse, uncomplicated (principal); M79.604 Pain in right leg; M79.605 Pain in left leg; F16.10 Hallucinogen abuse, uncomplicated; E11.9 Type 2 diabetes mellitus without complications; I10 Essential (primary) hypertension
CPT/HCPCS: 36415; 80053; 80305; 80320; 81003; 81025; 82550; 83605; 85025; 93005; 93970; 96361; 96374; 99284; J1885; J7030; G0480

== ENCOUNTER 2022-10-03 18:58 | Emergency (ER) | payer MEDICAID ==
[~2022-10-03] VITALS: Ht 167.6 cm; Wt 84.0 kg
[~2022-10-03 18:58] MED LIST changes: +IBUP-2028 MT
[2022-10-03 19:04] VITALS: BP 122/80; PULSE 88; RESP 16; TEMP 98.2; O2SAT 95
== END 2022-10-03 22:11 | disposition left against medical advice (07) ==
LOC: ER 18:58
DX: Z53.21 Procedure and treatment not carried out due to patient leaving prior to being seen by health care provider (principal)

== ENCOUNTER 2023-03-18 22:49 | Inpatient (IN) | payer MEDICAID ==
[~2023-03-18] VITALS: Ht 170.2 cm; Wt 100.2 kg
[2023-03-19 01:00] LABS: BASOPHILS % 0.6 % (0.0-2.0); EOSINOPHILS % 0.3 % (0.0-5.0); HEMATOCRIT. 38.7 % (36.0-48.0); LYMPHOCYTES % 9.4 % (20.0-50.0); MEAN CORPUSCULAR HEMOGLOBIN 27.7 pg (28.0-32.0); MEAN CORPUSCULAR VOLUME 89.4 fL (81.0-99.0); MONOCYTES % 19.6 % (2.0-8.0); NEUTROPHILS % 70.1 % (40.0-76.0); PLATELET 235 x1000/uL (130-400); RED BLOOD CELL COUNT 4.33 mill/uL (4.2-5.4); RED CELL DISTRIBUTION WIDTH 16.8 % (11.6-14.6); WHITE BLOOD COUNT 4.1 x1000/uL (4.5-11.0)
[2023-03-19 01:02] LABS: DIFFERENTIAL COMMENT 1
[2023-03-19 01:14] LABS: ALANINE AMINOTRANSFERASE 68 IU/L (10-49); ALBUMIN 3.6 g/dL (3.2-4.8); ASPARTATE AMINOTRANSFERASE 58 IU/L (<34); BILIRUBIN TOTAL 0.8 mg/dL (0.1-1.0); CALCIUM 8.8 mg/dL (8.7-10.4); CARBON DIOXIDE 35 mEq/L (21-32); CHLORIDE 101 mEq/L (98-107); GLUCOSE 83 mg/dL (70-105); POTASSIUM 4.2 mEq/L (3.5-5.1); PROTEIN TOTAL 7.3 g/dL (6.0-8.3); SODIUM 139 mEq/L (136-145); UREA NITROGEN BLOOD 21 mg/dL (9-23)
[2023-03-19 01:54] LABS: ETHANOL BLOOD < 10 mg/dL (<10)
[2023-03-19 01:55] LABS: TROPONIN I HIGH SENSITIVITY 60 ng/L (3.0-34)
[2023-03-19] MEDS ORDERED: ONDANSETRON 4MG ODT PO ONE (03:15)
[2023-03-19] MEDS ORDERED: ACETAMINOPHEN 325MG TABLET PO ONE (03:15)
[2023-03-19] MEDS ORDERED: MORPHINE SULFATE 4 MG/ML CPJ (NOT FOR IM USE) IV ONE (04:30)
[2023-03-19] MEDS ORDERED: ENOXAPARIN 80MG/0.8ML SYR SUBCUT NR (04:45)
[2023-03-19] MEDS ORDERED: ASPIRIN 325MG EC TABLET PO NR ×2 (04:45→08:07)
[2023-03-19] MEDS ORDERED: ACETAMINOPHEN 325MG TABLET PO SCH (08:00)
[2023-03-19] MEDS ORDERED: MORPHINE SULFATE 4 MG/ML CPJ (NOT FOR IM USE) IV SCH ×2 (08:00)
[2023-03-19] MEDS ORDERED: ONDANSETRON 4MG ODT PO SCH (08:00)
[2023-03-19 18:40] VITALS: BP 112/62; PULSE 105; RESP 20; TEMP 98.7
[2023-03-19] MEDS ORDERED: DEXTROSE 50% WATER 50ML SYRINGE IV PRN (19:00)
[2023-03-19 20:00] VITALS: BP 109/59; PULSE 95; RESP 20; TEMP 98.6
[2023-03-19] MEDS: IPRATROPIUM/ALBUTEROL 0.5-3(2.5)MG/3ML NEB HHN SCH (20:00)
[2023-03-19] MEDS: INSULIN LISPRO 100 UNITS/ML SUBCUT SCH (20:21)
[2023-03-19] MEDS: BLOOD SUGAR DIAGNOSTIC STRIP TEST SCH (20:21)
[2023-03-19] MEDS: ARIPIPRAZOLE 5MG TABLET PO SCH (21:00)
[2023-03-19] MEDS: TRAZODONE HCL 50MG TABLET PO SCH (21:00)
[2023-03-20] VITALS (11 sets, daily range): BP systolic 111–147; BP diastolic 59–80; PULSE 70–153; RESP 16–20; TEMP 97–98.8; O2SAT 94–96
[2023-03-20] MEDS: IPRATROPIUM/ALBUTEROL 0.5-3(2.5)MG/3ML NEB HHN SCH ×6 (00:28→20:06)
[2023-03-20] MEDS: INSULIN LISPRO 100 UNITS/ML SUBCUT SCH ×2 (06:17→12:40)
[2023-03-20] MEDS: BLOOD SUGAR DIAGNOSTIC STRIP TEST SCH ×2 (06:17→13:04)
[2023-03-20 07:41] LABS: HEMATOCRIT. 36.8 % (36.0-48.0); HEMOGLOBIN. 11.4 g/dL (12.0-16.0); MEAN CORPUSCULAR HEMOGLOBIN 27.5 pg (28.0-32.0); MEAN CORPUSCULAR VOLUME 88.6 fL (81.0-99.0); MEAN PLATELET VOLUME 8.3 fl (7.4-10.4); PLATELET 187 x1000/uL (130-400); RED BLOOD CELL COUNT 4.16 mill/uL (4.2-5.4); RED CELL DISTRIBUTION WIDTH 17.1 % (11.6-14.6)
[2023-03-20 07:56] LABS: DIFFERENTIAL COMMENT 1
[2023-03-20 08:03] LABS: ALANINE AMINOTRANSFERASE 77 IU/L (10-49); ALBUMIN 3.4 g/dL (3.2-4.8); ASPARTATE AMINOTRANSFERASE 70 IU/L (<34); BILIRUBIN TOTAL 0.6 mg/dL (0.1-1.0); CALCIUM 8.2 mg/dL (8.7-10.4); CARBON DIOXIDE 34 mEq/L (21-32); CHLORIDE 102 mEq/L (98-107); CHOLESTEROL 104 mg/dL (<200); CREATININE 0.8 mg/dL (0.6-1.0); GLUCOSE 149 mg/dL (70-105); HDL CHOLESTEROL 32 mg/dL (>65); LDL CHOLESTEROL 54 mg/dL (5-100); POTASSIUM 4.5 mEq/L (3.5-5.1); PROTEIN TOTAL 6.9 g/dL (6.0-8.3); SODIUM 139 mEq/L (136-145); TRIGLYCERIDE 62 mg/dL (0-150); UREA NITROGEN BLOOD 16 mg/dL (9-23)
[2023-03-20 11:38] LABS: TROPONIN I HIGH SENSITIVITY 62 ng/L (3.0-34)
[2023-03-20] MEDS: FUROSEMIDE 40MG/4ML VIAL IVP SCH (12:01)
[2023-03-20] MEDS ORDERED: ENOXAPARIN 30MG/0.3ML SYR SUBCUT SCH (18:00)
[2023-03-20 20:29] LABS: ANISOCYTOSIS 1+; PLATELET ESTIMATE NORMAL
[2023-03-20] MEDS: ARIPIPRAZOLE 5MG TABLET PO SCH (21:06)
[2023-03-20] MEDS: TRAZODONE HCL 50MG TABLET PO SCH (21:06)
[2023-03-20] MEDS: LORAZEPAM 1MG TABLET PO PRN (23:40)
[2023-03-20] MEDS: METOPROLOL TARTRATE 50MG TABLET PO SCH (23:42)
[2023-03-21] VITALS (14 sets, daily range): BP systolic 97–133; BP diastolic 35–91; PULSE 77–166; RESP 9–24; TEMP 97–97.6; O2SAT 93–100
[2023-03-21] MEDS: IPRATROPIUM/ALBUTEROL 0.5-3(2.5)MG/3ML NEB HHN SCH ×3 (01:27→08:34)
[2023-03-21] MEDS: ENOXAPARIN 40MG/0.4ML SYR SUBCUT SCH ×2 (05:26→17:51)
[2023-03-21] MEDS: LORAZEPAM 1MG TABLET PO PRN (05:27)
[2023-03-21] MEDS: FUROSEMIDE 40MG/4ML VIAL IVP SCH (08:19)
[2023-03-21] MEDS: METOPROLOL TARTRATE 50MG TABLET PO SCH (08:22)
[2023-03-21] MEDS ORDERED: AMIODARONE 150MG/100ML PREMIX 100 ML IV NR (11:15)
[2023-03-21] MEDS: AMIODARONE HCL 900 MG in DEXT 5% WATER 482 ML IV SCH ×3 (11:59→23:12)
[2023-03-21 13:35] LABS: BG BASE EXCESS 12.1 mmol/L (-2.0-2.0); BG CARBOXYHEMOGLOBIN 1.1 % (0.5-1.5); BG DEOXYHEMOGLOBIN 11.5 % (0.0-5.0); BG FRACTION INSPIRED OXYGEN 28; BG HCO3 ACT 40.5 mmol/L (22.0-26.0); BG METHEMOGLOBIN 0.2 % (0.0-1.5); BG OXYGEN SATURATION 88.3 % (92.0-98.5); BG OXYHEMOGLOBIN 87.2 % (94.0-97.0); BG PCO2 73.8 mmHg (35.0-45.0); BG PH 7.357 (7.350-7.450); BG PO2 55.1 mmHg (75.0-100.0); BG SAMPLE SITE LEFT RADIAL; BG TOTAL HEMOGLOBIN 12.2 g/dL (12.0-18.0); BG VENT MODE NASAL CANNULA
[2023-03-21] MEDS: METHYLPREDNISOLONE SOD SUCC 40MG/ML (ACT-O-VIAL) IV SCH ×2 (14:36→21:07)
[2023-03-21] MEDS ORDERED: DIGOXIN 500MCG/2ML AMP IV PRN (14:45)
[2023-03-21 15:44] LABS: AMMONIA 60 uMol/L (<32)
[2023-03-21 18:02] LABS: BG BASE EXCESS 13.1 mmol/L (-2.0-2.0); BG CARBOXYHEMOGLOBIN 1.4 % (0.5-1.5); BG DEOXYHEMOGLOBIN 3.2 % (0.0-5.0); BG FRACTION INSPIRED OXYGEN 100; BG METHEMOGLOBIN 0.3 % (0.0-1.5); BG OXYGEN SATURATION 96.7 % (92.0-98.5); BG OXYHEMOGLOBIN 95.1 % (94.0-97.0); BG PCO2 97.4 mmHg (35.0-45.0); BG PH 7.273 (7.350-7.450); BG PO2 93.3 mmHg (75.0-100.0); BG SAMPLE SITE RIGHT RADIAL; BG TOTAL HEMOGLOBIN 12.8 g/dL (12.0-18.0); BG VENT MODE HIGH FLOW
[2023-03-21] MEDS: TRAZODONE HCL 50MG TABLET PO SCH (21:07)
[2023-03-21] MEDS: ARIPIPRAZOLE 5MG TABLET PO SCH (21:07)
[2023-03-22] VITALS (11 sets, daily range): BP systolic 110–148; BP diastolic 68–92; PULSE 78–104; RESP 16–34; TEMP 97.3–99.9
[2023-03-22] MEDS: METHYLPREDNISOLONE SOD SUCC 40MG/ML (ACT-O-VIAL) IV SCH ×3 (06:48→21:04)
[2023-03-22] MEDS: ENOXAPARIN 40MG/0.4ML SYR SUBCUT SCH (06:48)
[2023-03-22] MEDS: FUROSEMIDE 40MG/4ML VIAL IVP SCH (09:00)
[2023-03-22 10:52] LABS: HEMATOCRIT. 36.6 % (36.0-48.0); HEMOGLOBIN. 11.1 g/dL (12.0-16.0); MEAN CORPUSCULAR HEMOGLOBIN 27.2 pg (28.0-32.0); MEAN CORPUSCULAR HGB CONC 30.3 g/dL (31.0-37.0); MEAN CORPUSCULAR VOLUME 89.9 fL (81.0-99.0); PLATELET 161 x1000/uL (130-400); RED BLOOD CELL COUNT 4.07 mill/uL (4.2-5.4); RED CELL DISTRIBUTION WIDTH 17.4 % (11.6-14.6); WHITE BLOOD COUNT 3.2 x1000/uL (4.5-11.0)
[2023-03-22 11:09] LABS: DIFFERENTIAL COMMENT 1
[2023-03-22 13:20] LABS: CALCIUM 8.9 mg/dL (8.7-10.4); CHLORIDE 99 mEq/L (98-107); CREATININE 0.9 mg/dL (0.6-1.0); GLUCOSE 102 mg/dL (70-105); POTASSIUM 4.9 mEq/L (3.5-5.1); SODIUM 144 mEq/L (136-145); THYROID STIMULATING HORMONE 1.09 uIU/mL (0.55-4.78); UREA NITROGEN BLOOD 20 mg/dL (9-23)
[2023-03-22 13:22] LABS: CARBON DIOXIDE > 40 mEq/L (21-32)
[2023-03-22 13:29] LABS: BG BASE EXCESS 18.6 mmol/L (-2.0-2.0); BG CARBOXYHEMOGLOBIN 0.9 % (0.5-1.5); BG DEOXYHEMOGLOBIN 0.2 % (0.0-5.0); BG FRACTION INSPIRED OXYGEN 100; BG HCO3 ACT 53.1 mmol/L (22.0-26.0); BG METHEMOGLOBIN 0.5 % (0.0-1.5); BG OXYGEN SATURATION 99.8 % (92.0-98.5); BG OXYHEMOGLOBIN 98.4 % (94.0-97.0); BG PCO2 148.8 mmHg (35.0-45.0); BG PO2 295.8 mmHg (75.0-100.0); BG SAMPLE SITE LEFT RADIAL; BG TOTAL HEMOGLOBIN 12.3 g/dL (12.0-18.0); BG VENT MODE VAPOTHERM
[2023-03-22] MEDS ORDERED: LIDOCAINE HCL 1% 10 MG/ML 10ML VIAL ONE (13:41)
[2023-03-22] MEDS ORDERED: LORAZEPAM 2MG/ML INJ IV ONE (14:15)
[2023-03-22] MEDS: LORAZEPAM 2MG/ML INJ IV PRN (14:17)
[2023-03-22] MEDS ORDERED: MAGNESIUM 2 G PREMIX 50 ML IV NR (17:00)
[2023-03-22 17:45] LABS: BG BASE EXCESS 13.8 mmol/L (-2.0-2.0); BG CARBOXYHEMOGLOBIN 0.8 % (0.5-1.5); BG DEOXYHEMOGLOBIN 48.7 % (0.0-5.0); BG FRACTION INSPIRED OXYGEN 21; BG HCO3 ACT 41.9 mmol/L (22.0-26.0); BG METHEMOGLOBIN 0.3 % (0.0-1.5); BG OXYGEN SATURATION 50.8 % (92.0-98.5); BG OXYHEMOGLOBIN 50.2 % (94.0-97.0); BG PCO2 72.2 mmHg (35.0-45.0); BG PH 7.382 (7.350-7.450); BG PO2 < 30.3 mmHg (75.0-100.0); BG SAMPLE SITE LEFT RADIAL; BG TOTAL HEMOGLOBIN 12.5 g/dL (12.0-18.0); BG VENT MODE HIGH FLOW
[2023-03-22 20:21] LABS: BG BASE EXCESS 14.6 mmol/L (-2.0-2.0); BG CARBOXYHEMOGLOBIN 0.9 % (0.5-1.5); BG DEOXYHEMOGLOBIN 12.5 % (0.0-5.0); BG FRACTION INSPIRED OXYGEN 50; BG HCO3 ACT 44.7 mmol/L (22.0-26.0); BG METHEMOGLOBIN 0.4 % (0.0-1.5); BG OXYGEN SATURATION 87.3 % (92.0-98.5); BG OXYHEMOGLOBIN 86.2 % (94.0-97.0); BG PCO2 92.3 mmHg (35.0-45.0); BG PH 7.303 (7.350-7.450); BG PO2 57.2 mmHg (75.0-100.0); BG SAMPLE SITE RIGHT RADIAL; BG VENT MODE HIGH FLOW
[2023-03-22] MEDS: ENOXAPARIN 30MG/0.3ML SYR SUBCUT SCH (21:00)
[2023-03-23] VITALS (12 sets, daily range): BP systolic 112–147; BP diastolic 71–82; PULSE 64–89; RESP 19–30; TEMP 96.8–99.3
[2023-03-23] MEDS ORDERED: HALOPERIDOL LACTATE 5MG/ML VIAL IM NR (03:00)
[2023-03-23] MEDS ORDERED: ACETAMINOPHEN 325MG TABLET PO PRN (03:00)
[2023-03-23] MEDS: ENOXAPARIN 30MG/0.3ML SYR SUBCUT SCH ×2 (05:14→18:00)
[2023-03-23] MEDS: METHYLPREDNISOLONE SOD SUCC 40MG/ML (ACT-O-VIAL) IV SCH (05:14)
[2023-03-23 07:41] LABS: BASOPHILS % 0.1 % (0.0-2.0); DIFFERENTIAL COMMENT 0; HEMATOCRIT. 35.9 % (36.0-48.0); HEMOGLOBIN. 10.6 g/dL (12.0-16.0); LYMPHOCYTES % 11.2 % (20.0-50.0); MEAN CORPUSCULAR HEMOGLOBIN 26.6 pg (28.0-32.0); MEAN CORPUSCULAR HGB CONC 29.6 g/dL (31.0-37.0); MEAN PLATELET VOLUME 8.1 fl (7.4-10.4); MONOCYTES % 8.9 % (2.0-8.0); NEUTROPHILS % 79.8 % (40.0-76.0); PLATELET 156 x1000/uL (130-400); RED BLOOD CELL COUNT 3.99 mill/uL (4.2-5.4)
[2023-03-23 07:51] LABS: CALCIUM 8.9 mg/dL (8.7-10.4); CHLORIDE 100 mEq/L (98-107); CREATININE 0.9 mg/dL (0.6-1.0); GLUCOSE 129 mg/dL (70-105); POTASSIUM 4.9 mEq/L (3.5-5.1); SODIUM 144 mEq/L (136-145); UREA NITROGEN BLOOD 28 mg/dL (9-23)
[2023-03-23 07:58] LABS: CARBON DIOXIDE > 40 mEq/L (21-32)
[2023-03-23] MEDS: FUROSEMIDE 40MG/4ML VIAL IVP SCH (09:00)
[2023-03-23 10:37] LABS: BG CARBOXYHEMOGLOBIN 0.6 % (0.5-1.5); BG DEOXYHEMOGLOBIN 3.3 % (0.0-5.0); BG FRACTION INSPIRED OXYGEN 50; BG METHEMOGLOBIN 0.4 % (0.0-1.5); BG OXYGEN SATURATION 96.7 % (92.0-98.5); BG OXYHEMOGLOBIN 95.7 % (94.0-97.0); BG PCO2 100.7 mmHg (35.0-45.0); BG PH 7.268 (7.350-7.450); BG PO2 99.9 mmHg (75.0-100.0); BG SAMPLE SITE RIGHT RADIAL; BG TOTAL HEMOGLOBIN 12.3 g/dL (12.0-18.0); BG VENT MODE HIGH FLOW
[2023-03-23] MEDS: METHYLPREDNISOLONE SOD SUCC 125MG/2ML (ACT-O-VIAL) IV SCH ×2 (17:03→20:26)
[2023-03-23 17:39] LABS: NUCLEATED RED BLOOD CELLS 1 /100 WBC
[2023-03-23 17:40] LABS: ANISOCYTOSIS 1+; HYPOCHROMASIA 1+; PLATELET ESTIMATE NORMAL
[2023-03-23] MEDS: AMIODARONE HCL 900 MG in DEXT 5% WATER 482 ML IV SCH (20:26)
[2023-03-24] VITALS (12 sets, daily range): BP systolic 129–158; BP diastolic 78–99; PULSE 66–116; RESP 22–33; TEMP 97–99.4
[2023-03-24] MEDS: LORAZEPAM 2MG/ML INJ IV PRN ×3 (00:37→22:56)
[2023-03-24] MEDS: METHYLPREDNISOLONE SOD SUCC 125MG/2ML (ACT-O-VIAL) IV SCH ×4 (01:08→22:25)
[2023-03-24] MEDS: ENOXAPARIN 30MG/0.3ML SYR SUBCUT SCH ×2 (06:00→18:06)
[2023-03-24 08:23] LABS: BASOPHILS % 0.2 % (0.0-2.0); HEMATOCRIT. 36.1 % (36.0-48.0); HEMOGLOBIN. 11.2 g/dL (12.0-16.0); LYMPHOCYTES % 10.9 % (20.0-50.0); MEAN CORPUSCULAR HEMOGLOBIN 27.4 pg (28.0-32.0); MEAN CORPUSCULAR HGB CONC 31.1 g/dL (31.0-37.0); MEAN CORPUSCULAR VOLUME 88.1 fL (81.0-99.0); MEAN PLATELET VOLUME 8.4 fl (7.4-10.4); MONOCYTES % 9.2 % (2.0-8.0); NEUTROPHILS % 79.7 % (40.0-76.0); PLATELET 148 x1000/uL (130-400); RED CELL DISTRIBUTION WIDTH 17.3 % (11.6-14.6); WHITE BLOOD COUNT 2.7 x1000/uL (4.5-11.0)
[2023-03-24 08:42] LABS: CALCIUM 8.7 mg/dL (8.7-10.4); CHLORIDE 101 mEq/L (98-107); CREATININE 0.8 mg/dL (0.6-1.0); GLUCOSE 116 mg/dL (70-105); SODIUM 147 mEq/L (136-145); UREA NITROGEN BLOOD 28 mg/dL (9-23)
[2023-03-24 09:34] LABS: CARBON DIOXIDE > 40 mEq/L (21-32)
[2023-03-24] MEDS: FUROSEMIDE 40MG/4ML VIAL IVP SCH (09:53)
[2023-03-24 10:33] LABS: BG CARBOXYHEMOGLOBIN 1.4 % (0.5-1.5); BG DEOXYHEMOGLOBIN 6.4 % (0.0-5.0); BG FRACTION INSPIRED OXYGEN 50; BG HCO3 ACT 49.6 mmol/L (22.0-26.0); BG METHEMOGLOBIN 0.3 % (0.0-1.5); BG OXYGEN SATURATION 93.5 % (92.0-98.5); BG OXYHEMOGLOBIN 91.9 % (94.0-97.0); BG PCO2 105.6 mmHg (35.0-45.0); BG PO2 74.8 mmHg (75.0-100.0); BG SAMPLE SITE RIGHT RADIAL; BG TOTAL HEMOGLOBIN 12.8 g/dL (12.0-18.0); BG VENT MODE HIGH FLOW
[2023-03-24] MEDS ORDERED: TERBUTALINE SULFATE 1MG/ML VIAL SUBCUT SCH (14:00)
[2023-03-24] MEDS: AMIODARONE HCL 900 MG in DEXT 5% WATER 482 ML IV SCH (14:30)
[2023-03-25] VITALS (12 sets, daily range): BP systolic 133–194; BP diastolic 69–126; PULSE 78–149; RESP 21–34; TEMP 97.4–98.1
[2023-03-25] MEDS ORDERED: HALOPERIDOL LACTATE 5MG/ML VIAL IM NR (00:30)
[2023-03-25] MEDS ORDERED: LORAZEPAM 2MG/ML INJ IV NR (00:30)
[2023-03-25] MEDS: METHYLPREDNISOLONE SOD SUCC 125MG/2ML (ACT-O-VIAL) IV SCH ×4 (02:17→20:52)
[2023-03-25] MEDS: ENOXAPARIN 30MG/0.3ML SYR SUBCUT SCH ×2 (07:07→18:00)
[2023-03-25] MEDS: FUROSEMIDE 40MG/4ML VIAL IVP SCH (08:16)
[2023-03-25] MEDS: HYDRALAZINE 20MG/ML VIAL IV SCH ×3 (08:16→18:00)
[2023-03-25 08:58] LABS: CALCIUM 9.1 mg/dL (8.7-10.4); CHLORIDE 98 mEq/L (98-107); CREATININE 0.9 mg/dL (0.6-1.0); GLUCOSE 116 mg/dL (70-105); POTASSIUM 4.9 mEq/L (3.5-5.1); SODIUM 151 mEq/L (136-145); UREA NITROGEN BLOOD 32 mg/dL (9-23)
[2023-03-25] MEDS ORDERED: CLONIDINE HCL 0.1MG/24HR PATCH TD SCH (09:00)
[2023-03-25 09:20] LABS: BASOPHILS % 0.4 % (0.0-2.0); DIFFERENTIAL COMMENT 0; EOSINOPHILS % 0.1 % (0.0-5.0); HEMATOCRIT. 40.2 % (36.0-48.0); HEMOGLOBIN. 12.3 g/dL (12.0-16.0); LYMPHOCYTES % 8.5 % (20.0-50.0); MEAN CORPUSCULAR HGB CONC 30.5 g/dL (31.0-37.0); MEAN CORPUSCULAR VOLUME 88.5 fL (81.0-99.0); MEAN PLATELET VOLUME 8.6 fl (7.4-10.4); MONOCYTES % 6.9 % (2.0-8.0); NEUTROPHILS % 84.1 % (40.0-76.0); PLATELET 172 x1000/uL (130-400); RED BLOOD CELL COUNT 4.54 mill/uL (4.2-5.4); RED CELL DISTRIBUTION WIDTH 17.2 % (11.6-14.6); WHITE BLOOD COUNT 5.3 x1000/uL (4.5-11.0)
[2023-03-25 09:33] LABS: CARBON DIOXIDE > 40 mEq/L (21-32)
[2023-03-25 10:13] LABS: BG BASE EXCESS 22.4 mmol/L (-2.0-2.0); BG CARBOXYHEMOGLOBIN 0.6 % (0.5-1.5); BG DEOXYHEMOGLOBIN 10.7 % (0.0-5.0); BG FRACTION INSPIRED OXYGEN 35; BG METHEMOGLOBIN 0.3 % (0.0-1.5); BG OXYGEN SATURATION 89.2 % (92.0-98.5); BG OXYHEMOGLOBIN 88.4 % (94.0-97.0); BG PCO2 102.1 mmHg (35.0-45.0); BG PH 7.341 (7.350-7.450); BG PO2 61.8 mmHg (75.0-100.0); BG SAMPLE SITE RIGHT RADIAL; BG TOTAL HEMOGLOBIN 13.4 g/dL (12.0-18.0); BG VENT MODE HIGH FLOW
[2023-03-25] MEDS: AMIODARONE HCL 900 MG in DEXT 5% WATER 482 ML IV SCH (14:30)
[2023-03-25] MEDS: HALOPERIDOL LACTATE 5MG/ML VIAL IM PRN (15:37)
[2023-03-26] VITALS (13 sets, daily range): BP systolic 139–197; BP diastolic 89–123; PULSE 67–150; RESP 20–32; TEMP 97.2–98.1
[2023-03-26] MEDS: HYDRALAZINE 20MG/ML VIAL IV SCH ×2 (01:02→05:28)
[2023-03-26] MEDS: HYDRALAZINE 20MG/ML VIAL IV PRN ×2 (01:47→08:48)
[2023-03-26] MEDS: HALOPERIDOL LACTATE 5MG/ML VIAL IM PRN ×2 (01:57→10:26)
[2023-03-26] MEDS: METHYLPREDNISOLONE SOD SUCC 125MG/2ML (ACT-O-VIAL) IV SCH ×4 (02:00→19:40)
[2023-03-26] MEDS: ENOXAPARIN 30MG/0.3ML SYR SUBCUT SCH ×2 (05:24→17:30)
[2023-03-26 06:41] LABS: CALCIUM 9.1 mg/dL (8.7-10.4); CHLORIDE 98 mEq/L (98-107); CREATININE 0.8 mg/dL (0.6-1.0); GLUCOSE 130 mg/dL (70-105); POTASSIUM 4.1 mEq/L (3.5-5.1); SODIUM 153 mEq/L (136-145); UREA NITROGEN BLOOD 29 mg/dL (9-23)
[2023-03-26 06:44] LABS: CARBON DIOXIDE > 40 mEq/L (21-32)
[2023-03-26 06:52] LABS: BASOPHILS % 0.5 % (0.0-2.0); HEMATOCRIT. 43.3 % (36.0-48.0); HEMOGLOBIN. 12.9 g/dL (12.0-16.0); LYMPHOCYTES % 7.1 % (20.0-50.0); MEAN CORPUSCULAR HEMOGLOBIN 26.6 pg (28.0-32.0); MEAN CORPUSCULAR HGB CONC 29.7 g/dL (31.0-37.0); MEAN CORPUSCULAR VOLUME 89.5 fL (81.0-99.0); NEUTROPHILS % 87.4 % (40.0-76.0); RED BLOOD CELL COUNT 4.84 mill/uL (4.2-5.4); RED CELL DISTRIBUTION WIDTH 17.3 % (11.6-14.6); WHITE BLOOD COUNT 7.4 x1000/uL (4.5-11.0)
[2023-03-26 06:55] LABS: DIFFERENTIAL COMMENT 1
[2023-03-26 08:25] LABS: BG BASE EXCESS 22.5 mmol/L (-2.0-2.0); BG CARBOXYHEMOGLOBIN 1.5 % (0.5-1.5); BG DEOXYHEMOGLOBIN 8.7 % (0.0-5.0); BG FRACTION INSPIRED OXYGEN 35; BG HCO3 ACT 53.2 mmol/L (22.0-26.0); BG METHEMOGLOBIN 0.6 % (0.0-1.5); BG OXYGEN SATURATION 91.1 % (92.0-98.5); BG OXYHEMOGLOBIN 89.2 % (94.0-97.0); BG PCO2 89.5 mmHg (35.0-45.0); BG PH 7.392 (7.350-7.450); BG PO2 66.5 mmHg (75.0-100.0); BG SAMPLE SITE RIGHT RADIAL; BG TOTAL HEMOGLOBIN 14.5 g/dL (12.0-18.0); BG VENT MODE HIGH FLOW
[2023-03-26 09:06] LABS: PLATELET 145 x1000/uL (130-400)
[2023-03-26] MEDS ORDERED: HYDRALAZINE HCL 100MG TABLET PO NR (10:30)
[2023-03-26] MEDS: DEXTROSE 5% WATER 1,000 ML IV SCH (11:06)
[2023-03-26] MEDS: HYDRALAZINE HCL 100MG TABLET PO SCH ×2 (12:58→21:26)
[2023-03-26] MEDS: AMLODIPINE 10MG TABLET PO SCH (12:58)
[2023-03-26] MEDS ORDERED: AMIODARONE HCL 200 MG TABLET PO SCH (13:00)
[2023-03-26] MEDS: LORAZEPAM 2MG/ML INJ IV PRN (14:57)
[2023-03-26] MEDS ORDERED: AMIODARONE HCL 900 MG in DEXT 5% WATER 482 ML IV PRN (17:00)
[2023-03-26] MEDS ORDERED: AMIODARONE 150MG/100ML PREMIX 100 ML IV NR (17:00)
[2023-03-26] MEDS ORDERED: QUET100T34 PO (17:08)
[2023-03-26] MEDS ORDERED: VALP250C3 PO (17:08)
[2023-03-26] MEDS ORDERED: METF-414 PO (17:08)
[2023-03-26] MEDS ORDERED: ASPI-1406 PO (17:08)
[2023-03-26] MEDS ORDERED: ATOR40TA70 PO (17:08)
[2023-03-26] MEDS ORDERED: ATROV INH (17:08)
[2023-03-26] MEDS ORDERED: ARIP5TAB58 PO (17:08)
[2023-03-26] MEDS ORDERED: FAMO20TA8 PO (17:08)
[2023-03-26] MEDS ORDERED: FLUT1DIS3 IH (17:27)
[2023-03-26] MEDS ORDERED: CHLO25TA2 PO (17:27)
[2023-03-27] VITALS (14 sets, daily range): BP systolic 142–184; BP diastolic 65–105; PULSE 50–94; RESP 15–34; TEMP 97.3–98.6
[2023-03-27] MEDS: HALOPERIDOL LACTATE 5MG/ML VIAL IM PRN ×3 (00:33→21:58)
[2023-03-27] MEDS: METHYLPREDNISOLONE SOD SUCC 125MG/2ML (ACT-O-VIAL) IV SCH ×4 (01:16→21:59)
[2023-03-27] MEDS: DEXTROSE 5% WATER 1,000 ML IV SCH (04:38)
[2023-03-27] MEDS: LORAZEPAM 2MG/ML INJ IV PRN ×3 (04:47→17:07)
[2023-03-27] MEDS: HYDRALAZINE HCL 100MG TABLET PO SCH ×3 (05:55→21:58)
[2023-03-27] MEDS: ENOXAPARIN 30MG/0.3ML SYR SUBCUT SCH ×2 (05:55→17:07)
[2023-03-27] MEDS: AMLODIPINE 10MG TABLET PO SCH (09:20)
[2023-03-27] MEDS: MAGNESIUM OXIDE 400MG TABLET PO SCH (09:20)
[2023-03-27] MEDS ORDERED: HYDRALAZINE 20MG/ML VIAL IV PRN (09:30)
[2023-03-27] MEDS ORDERED: HYDRALAZINE 20MG/ML VIAL IV NR (09:30)
[2023-03-27] MEDS ORDERED: LIDOCAINE HCL/EPINEPHRINE 1%-EPI 1:100,000 20 ML VIAL ONE (09:55)
[2023-03-27] MEDS ORDERED: LIDOCAINE HCL 1% 10 MG/ML 10ML VIAL ONE (09:56)
[2023-03-27 11:39] LABS: BG BASE EXCESS 19.3 mmol/L (-2.0-2.0); BG CARBOXYHEMOGLOBIN 1.6 % (0.5-1.5); BG DEOXYHEMOGLOBIN 10.2 % (0.0-5.0); BG FRACTION INSPIRED OXYGEN 35; BG HCO3 ACT 49.4 mmol/L (22.0-26.0); BG METHEMOGLOBIN 0.1 % (0.0-1.5); BG OXYGEN SATURATION 89.6 % (92.0-98.5); BG OXYHEMOGLOBIN 88.1 % (94.0-97.0); BG PCO2 84.8 mmHg (35.0-45.0); BG PH 7.383 (7.350-7.450); BG SAMPLE SITE LEFT RADIAL; BG TOTAL HEMOGLOBIN 14.2 g/dL (12.0-18.0); BG VENT MODE HIGH FLOW
[2023-03-27] MEDS ORDERED: IPRATROPIUM/ALBUTEROL 0.5-3(2.5)MG/3ML NEB HHN PRN (18:30)
[2023-03-27] MEDS: LOSARTAN 50 MG TABLET PO SCH (22:03)
[2023-03-28] VITALS (15 sets, daily range): BP systolic 128–156; BP diastolic 67–94; PULSE 65–99; RESP 16–31; TEMP 97.3–98.8; O2SAT 92–97
[2023-03-28] MEDS: DEXTROSE 5% WATER 1,000 ML IV SCH (02:30)
[2023-03-28] MEDS: METHYLPREDNISOLONE SOD SUCC 125MG/2ML (ACT-O-VIAL) IV SCH ×4 (05:04→21:28)
[2023-03-28] MEDS: HYDRALAZINE HCL 100MG TABLET PO SCH (06:05)
[2023-03-28] MEDS: ENOXAPARIN 30MG/0.3ML SYR SUBCUT SCH ×2 (06:06→18:30)
[2023-03-28] MEDS: IPRATROPIUM/ALBUTEROL 0.5-3(2.5)MG/3ML NEB HHN SCH ×4 (08:07→22:40)
[2023-03-28] MEDS: AMLODIPINE 10MG TABLET PO SCH (08:51)
[2023-03-28] MEDS: MAGNESIUM OXIDE 400MG TABLET PO SCH (08:51)
[2023-03-28] MEDS: LOSARTAN 50 MG TABLET PO SCH (09:05)
[2023-03-28 10:02] LABS: BG DEOXYHEMOGLOBIN 5.5 % (0.0-5.0); BG FRACTION INSPIRED OXYGEN 40; BG HCO3 ACT 43.7 mmol/L (22.0-26.0); BG OXYGEN SATURATION 94.4 % (92.0-98.5); BG OXYHEMOGLOBIN 92.5 % (94.0-97.0); BG PCO2 82.1 mmHg (35.0-45.0); BG PH 7.344 (7.350-7.450); BG SAMPLE SITE RIGHT RADIAL; BG TOTAL HEMOGLOBIN 13.8 g/dL (12.0-18.0); BG VENT MODE HIGH FLOW
[2023-03-28] MEDS: HYDRALAZINE HCL 50MG TABLET PO SCH ×2 (14:00→21:29)
[2023-03-28] MEDS: METOPROLOL TARTRATE 5MG/5ML VIAL IV SCH ×2 (14:01→21:28)
[2023-03-28] MEDS: HALOPERIDOL LACTATE 5MG/ML VIAL IM PRN ×2 (14:02→21:21)
[2023-03-28 17:47] LABS: CALCIUM 8.3 mg/dL (8.7-10.4); CARBON DIOXIDE 36 mEq/L (21-32); CHLORIDE 90 mEq/L (98-107); POTASSIUM 5.9 mEq/L (3.5-5.1); UREA NITROGEN BLOOD 20 mg/dL (9-23)
[2023-03-28 18:29] LABS: SODIUM 132 mEq/L (136-145)
[2023-03-28] MEDS: AMLODIPINE 2.5MG TABLET PO SCH (18:29)
[2023-03-28 18:30] LABS: GLUCOSE 406 mg/dL (70-105)
[2023-03-28] MEDS: THEOPHYLLINE ANHYDROUS 80 MG/15 ML 120ML PO SCH (18:30)
[2023-03-28] MEDS ORDERED: LORAZEPAM 0.5MG TABLET PO PRN (18:45)
[2023-03-28] MEDS: LORAZEPAM 2MG/ML INJ IV PRN (21:21)
[2023-03-28] MEDS ORDERED: LORAZEPAM 1MG TABLET PO PRN (23:16)
[2023-03-29] VITALS (12 sets, daily range): BP systolic 101–135; BP diastolic 52–87; PULSE 65–97; RESP 18–23; TEMP 97.3–98.1; O2SAT 95
[2023-03-29] MEDS: METHYLPREDNISOLONE SOD SUCC 125MG/2ML (ACT-O-VIAL) IV SCH ×4 (01:17→20:00)
[2023-03-29] MEDS: LORAZEPAM 1MG TABLET PO PRN ×3 (02:26→21:08)
[2023-03-29] MEDS: IPRATROPIUM/ALBUTEROL 0.5-3(2.5)MG/3ML NEB HHN SCH ×2 (04:30)
[2023-03-29] MEDS: ENOXAPARIN 30MG/0.3ML SYR SUBCUT SCH ×2 (05:34→18:00)
[2023-03-29] MEDS: THEOPHYLLINE ANHYDROUS 80 MG/15 ML 120ML PO SCH ×4 (05:34→17:44)
[2023-03-29] MEDS: HYDRALAZINE HCL 50MG TABLET PO SCH (06:00)
[2023-03-29] MEDS: METOPROLOL TARTRATE 5MG/5ML VIAL IV SCH (06:00)
[2023-03-29 08:15] LABS: BG BASE EXCESS 20.5 mmol/L (-2.0-2.0); BG CARBOXYHEMOGLOBIN 1.1 % (0.5-1.5); BG DEOXYHEMOGLOBIN 18.3 % (0.0-5.0); BG HCO3 ACT 52.8 mmol/L (22.0-26.0); BG METHEMOGLOBIN 0.2 % (0.0-1.5); BG OXYGEN SATURATION 81.5 % (92.0-98.5); BG OXYHEMOGLOBIN 80.4 % (94.0-97.0); BG PCO2 110.8 mmHg (35.0-45.0); BG PH 7.296 (7.350-7.450); BG PO2 50.6 mmHg (75.0-100.0); BG SAMPLE SITE RIGHT RADIAL; BG TOTAL HEMOGLOBIN 13.4 g/dL (12.0-18.0); BG VENT MODE VAPOTHERM
[2023-03-29] MEDS: AMIODARONE HCL 200 MG TABLET PO SCH ×2 (09:00→21:00)
[2023-03-29] MEDS: MAGNESIUM OXIDE 400MG TABLET PO SCH (09:00)
[2023-03-29] MEDS: HALOPERIDOL LACTATE 5MG/ML VIAL IM PRN ×2 (09:18→21:55)
[2023-03-29] MEDS: AMLODIPINE 2.5MG TABLET PO SCH ×2 (09:19→17:49)
[2023-03-29] MEDS: LOSARTAN 50 MG TABLET PO SCH (09:20)
[2023-03-29 13:19] LABS: BG BASE EXCESS 26.5 mmol/L (-2.0-2.0); BG CARBOXYHEMOGLOBIN 1.3 % (0.5-1.5); BG HCO3 ACT 61.8 mmol/L (22.0-26.0); BG METHEMOGLOBIN 0.2 % (0.0-1.5); BG OXYGEN SATURATION 83.8 % (92.0-98.5); BG OXYHEMOGLOBIN 82.5 % (94.0-97.0); BG PH 7.272 (7.350-7.450); BG SAMPLE SITE RIGHT RADIAL; BG TOTAL HEMOGLOBIN 14.7 g/dL (12.0-18.0); BG VENT MODE VAPOTHERM
[2023-03-30] VITALS (14 sets, daily range): BP systolic 90–132; BP diastolic 55–96; PULSE 63–99; RESP 17–68; TEMP 97–98.4; O2SAT 94–96
[2023-03-30] MEDS: IPRATROPIUM/ALBUTEROL 0.5-3(2.5)MG/3ML NEB HHN SCH ×4 (01:19→20:10)
[2023-03-30] MEDS: METHYLPREDNISOLONE SOD SUCC 125MG/2ML (ACT-O-VIAL) IV SCH ×4 (02:00→19:48)
[2023-03-30] MEDS: THEOPHYLLINE ANHYDROUS 80 MG/15 ML 120ML PO SCH ×4 (06:00→18:00)
[2023-03-30] MEDS: ENOXAPARIN 30MG/0.3ML SYR SUBCUT SCH ×2 (06:00→18:21)
[2023-03-30 06:40] LABS: HEMATOCRIT. 38.2 % (36.0-48.0); HEMOGLOBIN. 11.7 g/dL (12.0-16.0); MEAN CORPUSCULAR HEMOGLOBIN 27.2 pg (28.0-32.0); MEAN CORPUSCULAR HGB CONC 30.7 g/dL (31.0-37.0); MEAN CORPUSCULAR VOLUME 88.5 fL (81.0-99.0); PLATELET 194 x1000/uL (130-400); RED BLOOD CELL COUNT 4.32 mill/uL (4.2-5.4); RED CELL DISTRIBUTION WIDTH 17.2 % (11.6-14.6); WHITE BLOOD COUNT 7.6 x1000/uL (4.5-11.0)
[2023-03-30 06:50] LABS: ALANINE AMINOTRANSFERASE 26 IU/L (10-49); ASPARTATE AMINOTRANSFERASE 13 IU/L (<34); BILIRUBIN DIRECT 0.2 mg/dL (<=3.0); BILIRUBIN TOTAL 0.4 mg/dL (0.1-1.0); CALCIUM 8.4 mg/dL (8.7-10.4); CHLORIDE 95 mEq/L (98-107); CREATININE 0.9 mg/dL (0.6-1.0); GLUCOSE 108 mg/dL (70-105); POTASSIUM 4.4 mEq/L (3.5-5.1); PROTEIN TOTAL 5.8 g/dL (6.0-8.3); SODIUM 141 mEq/L (136-145); UREA NITROGEN BLOOD 31 mg/dL (9-23)
[2023-03-30 07:08] LABS: CARBON DIOXIDE > 40 mEq/L (21-32)
[2023-03-30 07:15] LABS: DIFFERENTIAL COMMENT 1
[2023-03-30 08:42] LABS: BG BASE EXCESS 18.7 mmol/L (-2.0-2.0); BG CARBOXYHEMOGLOBIN 1.1 % (0.5-1.5); BG DEOXYHEMOGLOBIN 6.2 % (0.0-5.0); BG FRACTION INSPIRED OXYGEN 50; BG HCO3 ACT 50.3 mmol/L (22.0-26.0); BG METHEMOGLOBIN 0.2 % (0.0-1.5); BG OXYGEN SATURATION 93.7 % (92.0-98.5); BG OXYHEMOGLOBIN 92.5 % (94.0-97.0); BG PCO2 106.1 mmHg (35.0-45.0); BG PH 7.294 (7.350-7.450); BG PO2 73.7 mmHg (75.0-100.0); BG SAMPLE SITE RIGHT RADIAL; BG TOTAL HEMOGLOBIN 12.9 g/dL (12.0-18.0); BG VENT MODE HIGH FLOW
[2023-03-30] MEDS: MAGNESIUM OXIDE 400MG TABLET PO SCH (09:00)
[2023-03-30] MEDS: AMIODARONE HCL 200 MG TABLET PO SCH ×2 (09:00→21:14)
[2023-03-30] MEDS: AMLODIPINE 2.5MG TABLET PO SCH (09:00)
[2023-03-30] MEDS ORDERED: ARIPIPRAZOLE 5MG TABLET PO SCH (09:30)
[2023-03-30] MEDS: ARIPIPRAZOLE 5MG TABLET PO SCH ×2 (10:15→18:20)
[2023-03-30] MEDS: HALOPERIDOL LACTATE 5MG/ML VIAL IM PRN ×2 (14:48→19:48)
[2023-03-30] MEDS: LORAZEPAM 1MG TABLET PO PRN (19:48)
[2023-03-30] MEDS ORDERED: QUETIAPINE FUMARATE 50MG TABLET PO SCH (21:00)
[2023-03-30] MEDS: LORAZEPAM 2MG/ML INJ IV PRN (21:14)
[2023-03-30] MEDS: QUETIAPINE FUMARATE 50MG TABLET PO SCH (21:14)
[2023-03-31] VITALS (13 sets, daily range): BP systolic 126–148; BP diastolic 67–98; PULSE 57–96; RESP 0–19; TEMP 96.9–98.2; O2SAT 96–97
[2023-03-31] MEDS: METHYLPREDNISOLONE SOD SUCC 125MG/2ML (ACT-O-VIAL) IV SCH ×3 (00:39→14:05)
[2023-03-31] MEDS: THEOPHYLLINE ANHYDROUS 80 MG/15 ML 120ML PO SCH ×4 (00:41→17:09)
[2023-03-31] MEDS: IPRATROPIUM/ALBUTEROL 0.5-3(2.5)MG/3ML NEB HHN SCH ×4 (03:20→20:24)
[2023-03-31] MEDS: ENOXAPARIN 30MG/0.3ML SYR SUBCUT SCH ×2 (06:21→17:09)
[2023-03-31] MEDS: ARIPIPRAZOLE 5MG TABLET PO SCH ×2 (08:44→17:09)
[2023-03-31] MEDS: MAGNESIUM OXIDE 400MG TABLET PO SCH (08:44)
[2023-03-31] MEDS: AMIODARONE HCL 200 MG TABLET PO SCH (08:44)
[2023-03-31] MEDS: AMLODIPINE 2.5MG TABLET PO SCH (08:44)
[2023-03-31 13:52] LABS: ANISOCYTOSIS 1+; NUCLEATED RED BLOOD CELLS 1 /100 WBC; PLATELET ESTIMATE NORMAL
[2023-04-01] VITALS (14 sets, daily range): BP systolic 128–161; BP diastolic 68–85; PULSE 64–86; RESP 12–27; TEMP 97.1–98.8; O2SAT 90–96
[2023-04-01] MEDS: QUETIAPINE FUMARATE 50MG TABLET PO SCH ×2 (00:53→20:45)
[2023-04-01] MEDS: AMIODARONE HCL 200 MG TABLET PO SCH ×3 (00:53→20:45)
[2023-04-01] MEDS: METHYLPREDNISOLONE SOD SUCC 125MG/2ML (ACT-O-VIAL) IV SCH ×5 (00:53→20:45)
[2023-04-01] MEDS: THEOPHYLLINE ANHYDROUS 80 MG/15 ML 120ML PO SCH ×5 (00:53→23:27)
[2023-04-01] MEDS: LORAZEPAM 2MG/ML INJ IV PRN (00:54)
[2023-04-01] MEDS: IPRATROPIUM/ALBUTEROL 0.5-3(2.5)MG/3ML NEB HHN SCH ×4 (04:49→19:47)
[2023-04-01] MEDS: ENOXAPARIN 30MG/0.3ML SYR SUBCUT SCH ×2 (06:10→17:17)
[2023-04-01] MEDS: ARIPIPRAZOLE 5MG TABLET PO SCH ×2 (09:11→17:17)
[2023-04-01] MEDS: MAGNESIUM OXIDE 400MG TABLET PO SCH (09:12)
[2023-04-01] MEDS: AMLODIPINE 2.5MG TABLET PO SCH (09:12)
[2023-04-01 11:16] LABS: BG BASE EXCESS 17.6 mmol/L (-2.0-2.0); BG CARBOXYHEMOGLOBIN 0.8 % (0.5-1.5); BG DEOXYHEMOGLOBIN 5.5 % (0.0-5.0); BG HCO3 ACT 48.3 mmol/L (22.0-26.0); BG METHEMOGLOBIN 0.1 % (0.0-1.5); BG OXYGEN SATURATION 94.5 % (92.0-98.5); BG OXYHEMOGLOBIN 93.6 % (94.0-97.0); BG PH 7.315 (7.350-7.450); BG PO2 76.1 mmHg (75.0-100.0); BG SAMPLE SITE RIGHT RADIAL; BG TOTAL HEMOGLOBIN 12.5 g/dL (12.0-18.0); BG VENT MODE VAPOTHERM
[2023-04-01] MEDS: HALOPERIDOL LACTATE 5MG/ML VIAL IM PRN ×2 (13:52→22:17)
[2023-04-02] VITALS (13 sets, daily range): BP systolic 140–157; BP diastolic 74–124; PULSE 59–93; RESP 14–23; TEMP 97.1–98; O2SAT 97
[2023-04-02] MEDS: METHYLPREDNISOLONE SOD SUCC 125MG/2ML (ACT-O-VIAL) IV SCH ×4 (02:14→20:27)
[2023-04-02] MEDS: IPRATROPIUM/ALBUTEROL 0.5-3(2.5)MG/3ML NEB HHN SCH (03:08)
[2023-04-02] MEDS: THEOPHYLLINE ANHYDROUS 80 MG/15 ML 120ML PO SCH ×3 (05:30→17:41)
[2023-04-02] MEDS: ENOXAPARIN 30MG/0.3ML SYR SUBCUT SCH ×2 (05:33→17:40)
[2023-04-02] MEDS: ARIPIPRAZOLE 5MG TABLET PO SCH ×2 (08:34→17:40)
[2023-04-02] MEDS: AMIODARONE HCL 200 MG TABLET PO SCH ×2 (08:34→20:28)
[2023-04-02] MEDS: AMLODIPINE 2.5MG TABLET PO SCH (08:34)
[2023-04-02] MEDS: MAGNESIUM OXIDE 400MG TABLET PO SCH (08:37)
[2023-04-02] MEDS: HALOPERIDOL LACTATE 5MG/ML VIAL IM PRN (15:38)
[2023-04-02] MEDS: AMLODIPINE 5MG TABLET PO SCH (17:41)
[2023-04-02] MEDS: FUROSEMIDE 40MG/4ML VIAL IVP SCH (17:48)
[2023-04-02] MEDS: LORAZEPAM 1MG TABLET PO PRN ×2 (17:48→21:03)
[2023-04-02] MEDS: QUETIAPINE FUMARATE 50MG TABLET PO SCH (20:28)
[2023-04-03] VITALS (11 sets, daily range): BP systolic 132–183; BP diastolic 59–99; PULSE 69–87; RESP 0–22; TEMP 97.3–99.2; O2SAT 96
[2023-04-03] MEDS: THEOPHYLLINE ANHYDROUS 80 MG/15 ML 120ML PO SCH ×4 (00:30→18:07)
[2023-04-03] MEDS: HALOPERIDOL LACTATE 5MG/ML VIAL IM PRN ×2 (00:31→12:29)
[2023-04-03] MEDS: METHYLPREDNISOLONE SOD SUCC 125MG/2ML (ACT-O-VIAL) IV SCH ×4 (01:52→20:51)
[2023-04-03] MEDS: ENOXAPARIN 30MG/0.3ML SYR SUBCUT SCH ×2 (05:04→17:53)
[2023-04-03 06:18] LABS: HEMATOCRIT. 35.8 % (36.0-48.0); HEMOGLOBIN. 11.2 g/dL (12.0-16.0); MEAN CORPUSCULAR HEMOGLOBIN 27.3 pg (28.0-32.0); MEAN CORPUSCULAR HGB CONC 31.2 g/dL (31.0-37.0); MEAN CORPUSCULAR VOLUME 87.4 fL (81.0-99.0); MEAN PLATELET VOLUME 8.1 fl (7.4-10.4); PLATELET 193 x1000/uL (130-400); RED BLOOD CELL COUNT 4.09 mill/uL (4.2-5.4); RED CELL DISTRIBUTION WIDTH 17.5 % (11.6-14.6)
[2023-04-03 06:53] LABS: DIFFERENTIAL COMMENT 1
[2023-04-03] MEDS: FUROSEMIDE 40MG/4ML VIAL IVP SCH (08:56)
[2023-04-03] MEDS: ARIPIPRAZOLE 5MG TABLET PO SCH ×2 (08:57→17:05)
[2023-04-03] MEDS: MAGNESIUM OXIDE 400MG TABLET PO SCH (08:57)
[2023-04-03] MEDS: AMIODARONE HCL 200 MG TABLET PO SCH ×2 (09:07→20:51)
[2023-04-03] MEDS: AMLODIPINE 5MG TABLET PO SCH ×2 (09:07→17:05)
[2023-04-03 10:44] LABS: BG BASE EXCESS 22.1 mmol/L (-2.0-2.0); BG CARBOXYHEMOGLOBIN 0.8 % (0.5-1.5); BG DEOXYHEMOGLOBIN 0.8 % (0.0-5.0); BG FRACTION INSPIRED OXYGEN 50; BG HCO3 ACT 50.4 mmol/L (22.0-26.0); BG METHEMOGLOBIN 0.3 % (0.0-1.5); BG OXYGEN SATURATION 99.2 % (92.0-98.5); BG OXYHEMOGLOBIN 98.1 % (94.0-97.0); BG PCO2 76.5 mmHg (35.0-45.0); BG PH 7.437 (7.350-7.450); BG PO2 160.3 mmHg (75.0-100.0); BG SAMPLE SITE RIGHT RADIAL; BG TOTAL HEMOGLOBIN 12.1 g/dL (12.0-18.0); BG VENT MODE HIGH FLOW
[2023-04-03] MEDS: QUETIAPINE FUMARATE 50MG TABLET PO SCH ×2 (12:28→20:52)
[2023-04-03] MEDS: HYDRALAZINE HCL 50MG TABLET PO SCH ×2 (13:05→21:22)
[2023-04-03] MEDS: LORAZEPAM 1MG TABLET PO PRN ×2 (17:02→23:58)
[2023-04-03 21:06] LABS: CALCIUM 8.7 mg/dL (8.7-10.4); CHLORIDE 90 mEq/L (98-107); GLUCOSE 218 mg/dL (70-105); POTASSIUM 4.6 mEq/L (3.5-5.1); SODIUM 140 mEq/L (136-145); UREA NITROGEN BLOOD 18 mg/dL (9-23)
[2023-04-03 21:11] LABS: CARBON DIOXIDE > 40 mEq/L (21-32); CREATININE 0.6 mg/dL (0.6-1.0)
[2023-04-03 22:30] LABS: PLATELET ESTIMATE NORMAL
[2023-04-04] VITALS (14 sets, daily range): BP systolic 121–159; BP diastolic 58–91; PULSE 68–99; RESP 8–21; TEMP 97–99; O2SAT 93–96
[2023-04-04] MEDS ORDERED: LORAZEPAM 2MG/ML INJ IV PRN
[2023-04-04] MEDS: THEOPHYLLINE ANHYDROUS 80 MG/15 ML 120ML PO SCH ×4 (00:01→17:27)
[2023-04-04] MEDS: METHYLPREDNISOLONE SOD SUCC 125MG/2ML (ACT-O-VIAL) IV SCH (03:41)
[2023-04-04] MEDS: HALOPERIDOL LACTATE 5MG/ML VIAL IM PRN ×2 (05:02→23:03)
[2023-04-04] MEDS: HYDRALAZINE HCL 50MG TABLET PO SCH ×3 (06:17→21:04)
[2023-04-04] MEDS: ENOXAPARIN 30MG/0.3ML SYR SUBCUT SCH ×2 (06:18→17:28)
[2023-04-04] MEDS ORDERED: METHYLPREDNISOLONE SOD SUCC 40MG/ML (ACT-O-VIAL) IV SCH (06:45)
[2023-04-04 08:31] LABS: BG BASE EXCESS 26.9 mmol/L (-2.0-2.0); BG CARBOXYHEMOGLOBIN 1.4 % (0.5-1.5); BG DEOXYHEMOGLOBIN 13.3 % (0.0-5.0); BG FRACTION INSPIRED OXYGEN 35; BG HCO3 ACT 56.6 mmol/L (22.0-26.0); BG METHEMOGLOBIN 0.2 % (0.0-1.5); BG OXYGEN SATURATION 86.5 % (92.0-98.5); BG OXYHEMOGLOBIN 85.1 % (94.0-97.0); BG PCO2 84.6 mmHg (35.0-45.0); BG PH 7.443 (7.350-7.450); BG PO2 50.9 mmHg (75.0-100.0); BG SAMPLE SITE RIGHT RADIAL; BG TOTAL HEMOGLOBIN 12.9 g/dL (12.0-18.0); BG VENT MODE HIGH FLOW
[2023-04-04] MEDS: ARIPIPRAZOLE 5MG TABLET PO SCH ×2 (09:19→17:27)
[2023-04-04] MEDS: AMLODIPINE 5MG TABLET PO SCH ×2 (09:19→17:27)
[2023-04-04] MEDS: FUROSEMIDE 40MG/4ML VIAL IVP SCH (09:19)
[2023-04-04] MEDS: AMIODARONE HCL 200 MG TABLET PO SCH ×2 (09:19→21:04)
[2023-04-04] MEDS: QUETIAPINE FUMARATE 50MG TABLET PO SCH ×2 (09:20→21:04)
[2023-04-04] MEDS: MAGNESIUM OXIDE 400MG TABLET PO SCH (09:21)
[2023-04-04] MEDS: METHYLPREDNISOLONE SOD SUCC 125MG VIAL IV SCH ×2 (12:51→17:28)
[2023-04-04] MEDS: LORAZEPAM 1MG TABLET PO PRN (21:30)
[2023-04-05] VITALS (13 sets, daily range): BP systolic 121–146; BP diastolic 62–82; PULSE 81–107; RESP 15–39; TEMP 97.7–98.9
[2023-04-05] MEDS: THEOPHYLLINE ANHYDROUS 80 MG/15 ML 120ML PO SCH ×4 (00:29→18:00)
[2023-04-05] MEDS: METHYLPREDNISOLONE SOD SUCC 125MG VIAL IV SCH ×3 (00:30→12:00)
[2023-04-05] MEDS: ENOXAPARIN 30MG/0.3ML SYR SUBCUT SCH ×2 (06:42→19:06)
[2023-04-05] MEDS: HYDRALAZINE HCL 50MG TABLET PO SCH ×3 (06:42→22:00)
[2023-04-05 06:54] LABS: HEMATOCRIT. 39.2 % (36.0-48.0); HEMOGLOBIN. 12.6 g/dL (12.0-16.0); MEAN CORPUSCULAR HEMOGLOBIN 27.4 pg (28.0-32.0); MEAN CORPUSCULAR HGB CONC 32.1 g/dL (31.0-37.0); MEAN CORPUSCULAR VOLUME 85.4 fL (81.0-99.0); MEAN PLATELET VOLUME 8.1 fl (7.4-10.4); PLATELET 218 x1000/uL (130-400); RED BLOOD CELL COUNT 4.59 mill/uL (4.2-5.4); RED CELL DISTRIBUTION WIDTH 18.7 % (11.6-14.6); WHITE BLOOD COUNT 14.4 x1000/uL (4.5-11.0)
[2023-04-05 07:12] LABS: DIFFERENTIAL COMMENT 1
[2023-04-05 07:29] LABS: CALCIUM 9.5 mg/dL (8.7-10.4); CHLORIDE 91 mEq/L (98-107); CREATININE 0.8 mg/dL (0.6-1.0); GLUCOSE 312 mg/dL (70-105); POTASSIUM 3.7 mEq/L (3.5-5.1); SODIUM 142 mEq/L (136-145); UREA NITROGEN BLOOD 21 mg/dL (9-23)
[2023-04-05 07:30] LABS: CARBON DIOXIDE > 40 mEq/L (21-32)
[2023-04-05] MEDS: QUETIAPINE FUMARATE 50MG TABLET PO SCH ×2 (08:32→22:00)
[2023-04-05] MEDS: ARIPIPRAZOLE 5MG TABLET PO SCH ×2 (08:40→17:00)
[2023-04-05] MEDS: AMLODIPINE 5MG TABLET PO SCH ×2 (08:41→17:00)
[2023-04-05] MEDS: FUROSEMIDE 40MG TABLET PO SCH (08:41)
[2023-04-05] MEDS: AMIODARONE HCL 200 MG TABLET PO SCH ×2 (08:42→21:59)
[2023-04-05] MEDS: MAGNESIUM OXIDE 400MG TABLET PO SCH (08:49)
[2023-04-05 09:56] LABS: BG BASE EXCESS 23.9 mmol/L (-2.0-2.0); BG CARBOXYHEMOGLOBIN 1.2 % (0.5-1.5); BG DEOXYHEMOGLOBIN 9.8 % (0.0-5.0); BG FRACTION INSPIRED OXYGEN 35; BG HCO3 ACT 52.5 mmol/L (22.0-26.0); BG METHEMOGLOBIN 0.3 % (0.0-1.5); BG OXYGEN SATURATION 90.1 % (92.0-98.5); BG OXYHEMOGLOBIN 88.7 % (94.0-97.0); BG PCO2 76.5 mmHg (35.0-45.0); BG PH 7.454 (7.350-7.450); BG PO2 55.4 mmHg (75.0-100.0); BG SAMPLE SITE RIGHT RADIAL; BG TOTAL HEMOGLOBIN 12.8 g/dL (12.0-18.0); BG VENT MODE HIGH FLOW
[2023-04-05] MEDS ORDERED: ACETAZOLAMIDE SODIUM 500MG/VIAL IV SCH (10:15)
[2023-04-05] MEDS: LORAZEPAM 1MG TABLET PO PRN ×2 (13:14→13:15)
[2023-04-05] MEDS: HALOPERIDOL LACTATE 5MG/ML VIAL IM PRN (13:33)
[2023-04-05 17:53] LABS: ANISOCYTOSIS 1+
[2023-04-05 17:54] LABS: PLATELET ESTIMATE NORMAL
[2023-04-05] MEDS: METHYLPREDNISOLONE SOD SUCC 40MG/ML (ACT-O-VIAL) IV SCH (22:49)
[2023-04-06] VITALS (12 sets, daily range): BP systolic 124–143; BP diastolic 46–78; PULSE 77–110; RESP 17–25; TEMP 98–98.3
[2023-04-06] MEDS: THEOPHYLLINE ANHYDROUS 80 MG/15 ML 120ML PO SCH ×5 (00:10→23:50)
[2023-04-06] MEDS ORDERED: HYDROCODONE/ACETAMINOPHEN 10/325MG TABLET PO PRN (00:15)
[2023-04-06] MEDS ORDERED: ACETAZOLAMIDE SODIUM 500MG/VIAL IV NR (05:30)
[2023-04-06] MEDS: ENOXAPARIN 30MG/0.3ML SYR SUBCUT SCH ×2 (06:28→18:20)
[2023-04-06] MEDS: METHYLPREDNISOLONE SOD SUCC 40MG/ML (ACT-O-VIAL) IV SCH ×3 (06:29→21:39)
[2023-04-06] MEDS: HYDRALAZINE HCL 50MG TABLET PO SCH ×3 (06:29→21:39)
[2023-04-06 09:12] LABS: HEMATOCRIT. 38.7 % (36.0-48.0); HEMOGLOBIN. 11.6 g/dL (12.0-16.0); MEAN CORPUSCULAR HEMOGLOBIN 26.1 pg (28.0-32.0); MEAN CORPUSCULAR HGB CONC 30.1 g/dL (31.0-37.0); MEAN CORPUSCULAR VOLUME 86.8 fL (81.0-99.0); MEAN PLATELET VOLUME 8.2 fl (7.4-10.4); PLATELET 172 x1000/uL (130-400); RED BLOOD CELL COUNT 4.46 mill/uL (4.2-5.4); RED CELL DISTRIBUTION WIDTH 19.2 % (11.6-14.6); WHITE BLOOD COUNT 16.9 x1000/uL (4.5-11.0)
[2023-04-06 09:14] LABS: DIFFERENTIAL COMMENT 1
[2023-04-06 09:27] LABS: CALCIUM 8.9 mg/dL (8.7-10.4); CHLORIDE 94 mEq/L (98-107); CREATININE 0.8 mg/dL (0.6-1.0); GLUCOSE 325 mg/dL (70-105); POTASSIUM 3.5 mEq/L (3.5-5.1); SODIUM 142 mEq/L (136-145); UREA NITROGEN BLOOD 22 mg/dL (9-23)
[2023-04-06 09:31] LABS: CARBON DIOXIDE > 40 mEq/L (21-32)
[2023-04-06] MEDS: AMIODARONE HCL 200 MG TABLET PO SCH ×2 (09:59→21:39)
[2023-04-06] MEDS: ARIPIPRAZOLE 5MG TABLET PO SCH ×2 (09:59→18:18)
[2023-04-06] MEDS: MAGNESIUM OXIDE 400MG TABLET PO SCH (09:59)
[2023-04-06] MEDS: AMLODIPINE 5MG TABLET PO SCH ×2 (10:00→18:19)
[2023-04-06] MEDS: FUROSEMIDE 40MG TABLET PO SCH (10:00)
[2023-04-06] MEDS: QUETIAPINE FUMARATE 50MG TABLET PO SCH ×2 (10:00→21:52)
[2023-04-06] MEDS: HALOPERIDOL LACTATE 5MG/ML VIAL IM PRN (13:22)
[2023-04-06 13:55] LABS: PLATELET ESTIMATE NORMAL
[2023-04-06] MEDS ORDERED: DEXTROSE 50% WATER 50ML SYRINGE IV PRN ×2 (17:30)
[2023-04-06] MEDS: BLOOD SUGAR DIAGNOSTIC STRIP TEST SCH ×2 (18:19→21:39)
[2023-04-06] MEDS: INSULIN LISPRO 100 UNITS/ML SUBCUT SCH (21:00)
[2023-04-06] MEDS ORDERED: INSULIN LISPRO 100 UNITS/ML SUBCUT NR (21:45)
[2023-04-06] MEDS: INSULIN GLARGINE 100 UNITS/ML SUBCUT SCH (22:09)
[2023-04-07] VITALS (12 sets, daily range): BP systolic 124–135; BP diastolic 65–74; PULSE 94–97; RESP 20–24; TEMP 97.8–99
[2023-04-07] MEDS: METHYLPREDNISOLONE SOD SUCC 40MG/ML (ACT-O-VIAL) IV SCH ×3 (05:44→21:04)
[2023-04-07] MEDS: HYDRALAZINE HCL 50MG TABLET PO SCH ×3 (05:44→21:02)
[2023-04-07] MEDS: THEOPHYLLINE ANHYDROUS 80 MG/15 ML 120ML PO SCH ×3 (05:47→18:00)
[2023-04-07] MEDS: ENOXAPARIN 30MG/0.3ML SYR SUBCUT SCH ×2 (06:00→17:59)
[2023-04-07] MEDS: HALOPERIDOL LACTATE 5MG/ML VIAL IM PRN (06:58)
[2023-04-07] MEDS: INSULIN LISPRO 100 UNITS/ML SUBCUT SCH ×4 (08:00→22:53)
[2023-04-07] MEDS: BLOOD SUGAR DIAGNOSTIC STRIP TEST SCH ×4 (08:07→21:00)
[2023-04-07] MEDS: QUETIAPINE FUMARATE 50MG TABLET PO SCH ×2 (09:41→21:01)
[2023-04-07] MEDS: FUROSEMIDE 40MG TABLET PO SCH (09:41)
[2023-04-07] MEDS: MAGNESIUM OXIDE 400MG TABLET PO SCH (09:42)
[2023-04-07] MEDS: AMIODARONE HCL 200 MG TABLET PO SCH ×2 (09:42→21:03)
[2023-04-07] MEDS: ARIPIPRAZOLE 5MG TABLET PO SCH ×2 (09:42→17:59)
[2023-04-07] MEDS: AMLODIPINE 5MG TABLET PO SCH ×2 (09:42→17:59)
[2023-04-07] MEDS: INSULIN GLARGINE 100 UNITS/ML SUBCUT SCH ×2 (09:48→22:52)
[2023-04-07 16:15] LABS: HEMATOCRIT. 39.6 % (36.0-48.0); HEMOGLOBIN. 11.8 g/dL (12.0-16.0); MEAN CORPUSCULAR HEMOGLOBIN 26.1 pg (28.0-32.0); MEAN CORPUSCULAR HGB CONC 29.8 g/dL (31.0-37.0); MEAN CORPUSCULAR VOLUME 87.6 fL (81.0-99.0); MEAN PLATELET VOLUME 7.9 fl (7.4-10.4); PLATELET 115 x1000/uL (130-400); RED BLOOD CELL COUNT 4.52 mill/uL (4.2-5.4)
[2023-04-07 16:18] LABS: DIFFERENTIAL COMMENT 1
[2023-04-07 16:31] LABS: CALCIUM 8.5 mg/dL (8.7-10.4); CHLORIDE 97 mEq/L (98-107); POTASSIUM 3.7 mEq/L (3.5-5.1); SODIUM 139 mEq/L (136-145); UREA NITROGEN BLOOD 29 mg/dL (9-23)
[2023-04-07 16:33] LABS: CARBON DIOXIDE > 40 mEq/L (21-32)
[2023-04-07 16:36] LABS: GLUCOSE 423 mg/dL (70-105)
[2023-04-07 16:50] LABS: ANISOCYTOSIS 1+; PLATELET ESTIMATE DECREASED
[2023-04-07] MEDS ORDERED: NALOXONE HCL 0.4MG/ML VIAL IV PRN (19:00)
[2023-04-07] MEDS: LORAZEPAM 1MG TABLET PO PRN (21:03)
[2023-04-08] VITALS (15 sets, daily range): BP systolic 112–154; BP diastolic 66–111; PULSE 89–122; RESP 21–37; TEMP 97.4–99.8
[2023-04-08] MEDS: HYDRALAZINE HCL 50MG TABLET PO SCH ×3 (06:00→22:06)
[2023-04-08] MEDS: ENOXAPARIN 30MG/0.3ML SYR SUBCUT SCH ×2 (06:00→19:07)
[2023-04-08] MEDS: THEOPHYLLINE ANHYDROUS 80 MG/15 ML 120ML PO SCH ×3 (06:00→12:00)
[2023-04-08] MEDS: METHYLPREDNISOLONE SOD SUCC 40MG/ML (ACT-O-VIAL) IV SCH ×3 (06:00→22:06)
[2023-04-08] MEDS: BLOOD SUGAR DIAGNOSTIC STRIP TEST SCH ×4 (07:35→21:00)
[2023-04-08 08:00] LABS: CALCIUM 8.9 mg/dL (8.7-10.4); CHLORIDE 97 mEq/L (98-107); CREATININE 0.9 mg/dL (0.6-1.0); GLUCOSE 262 mg/dL (70-105); POTASSIUM 3.9 mEq/L (3.5-5.1); SODIUM 142 mEq/L (136-145); UREA NITROGEN BLOOD 31 mg/dL (9-23)
[2023-04-08 08:01] LABS: HEMATOCRIT. 36.2 % (36.0-48.0); HEMOGLOBIN. 11.1 g/dL (12.0-16.0); MEAN CORPUSCULAR HEMOGLOBIN 26.5 pg (28.0-32.0); MEAN CORPUSCULAR HGB CONC 30.8 g/dL (31.0-37.0); MEAN CORPUSCULAR VOLUME 86.1 fL (81.0-99.0); MEAN PLATELET VOLUME 8.3 fl (7.4-10.4); PLATELET 98 x1000/uL (130-400); RED CELL DISTRIBUTION WIDTH 18.8 % (11.6-14.6); WHITE BLOOD COUNT 13.7 x1000/uL (4.5-11.0)
[2023-04-08 08:03] LABS: CARBON DIOXIDE > 40 mEq/L (21-32)
[2023-04-08 08:09] LABS: DIFFERENTIAL COMMENT 1
[2023-04-08] MEDS: MAGNESIUM OXIDE 400MG TABLET PO SCH (09:00)
[2023-04-08] MEDS: QUETIAPINE FUMARATE 50MG TABLET PO SCH ×2 (09:00→22:05)
[2023-04-08] MEDS: AMIODARONE HCL 200 MG TABLET PO SCH ×2 (09:00→22:06)
[2023-04-08] MEDS: ARIPIPRAZOLE 5MG TABLET PO SCH (09:00)
[2023-04-08] MEDS: AMLODIPINE 5MG TABLET PO SCH (09:00)
[2023-04-08] MEDS: FUROSEMIDE 40MG TABLET PO SCH (09:00)
[2023-04-08] MEDS: INSULIN LISPRO 100 UNITS/ML SUBCUT SCH ×4 (09:22→22:10)
[2023-04-08] MEDS: INSULIN GLARGINE 100 UNITS/ML SUBCUT SCH ×2 (13:41→22:08)
[2023-04-08 15:21] LABS: BG BASE EXCESS 17.2 mmol/L (-2.0-2.0); BG CARBOXYHEMOGLOBIN 1.1 % (0.5-1.5); BG DEOXYHEMOGLOBIN 9.3 % (0.0-5.0); BG FRACTION INSPIRED OXYGEN 40; BG HCO3 ACT 46.9 mmol/L (22.0-26.0); BG METHEMOGLOBIN 0.2 % (0.0-1.5); BG OXYGEN SATURATION 90.6 % (92.0-98.5); BG OXYHEMOGLOBIN 89.4 % (94.0-97.0); BG PCO2 85.9 mmHg (35.0-45.0); BG PH 7.355 (7.350-7.450); BG PO2 62.8 mmHg (75.0-100.0); BG SAMPLE SITE LEFT BRACHIAL; BG TOTAL HEMOGLOBIN 12.8 g/dL (12.0-18.0); BG TOTAL RESPIRATORY RATE 32 b/min; BG VENT MODE MASK - BIPAP
[2023-04-08 15:49] LABS: ANISOCYTOSIS 1+; PLATELET ESTIMATE DECREASED
[2023-04-08] MEDS: HALOPERIDOL LACTATE 5MG/ML VIAL IM PRN (20:49)
[2023-04-09] VITALS (20 sets, daily range): BP systolic 94–133; BP diastolic 55–75; PULSE 80–110; RESP 0–34; TEMP 96.4–102.3
[2023-04-09] MEDS: ACETAMINOPHEN 325MG TABLET PO PRN (03:16)
[2023-04-09 06:09] LABS: HEMATOCRIT. 33.9 % (36.0-48.0); HEMOGLOBIN. 10.6 g/dL (12.0-16.0); MEAN CORPUSCULAR HEMOGLOBIN 26.8 pg (28.0-32.0); MEAN CORPUSCULAR HGB CONC 31.3 g/dL (31.0-37.0); MEAN CORPUSCULAR VOLUME 85.4 fL (81.0-99.0); MEAN PLATELET VOLUME 9.5 fl (7.4-10.4); PLATELET 56 x1000/uL (130-400); RED BLOOD CELL COUNT 3.97 mill/uL (4.2-5.4); RED CELL DISTRIBUTION WIDTH 19.5 % (11.6-14.6); WHITE BLOOD COUNT 11.6 x1000/uL (4.5-11.0)
[2023-04-09 06:17] LABS: CALCIUM 8.6 mg/dL (8.7-10.4); POTASSIUM 4.3 mEq/L (3.5-5.1)
[2023-04-09] MEDS: ENOXAPARIN 30MG/0.3ML SYR SUBCUT SCH (06:29)
[2023-04-09] MEDS: METHYLPREDNISOLONE SOD SUCC 40MG/ML (ACT-O-VIAL) IV SCH ×3 (06:29→21:28)
[2023-04-09] MEDS: HYDRALAZINE HCL 50MG TABLET PO SCH ×3 (06:34→21:31)
[2023-04-09] MEDS: THEOPHYLLINE ANHYDROUS 80 MG/15 ML 120ML PO SCH ×3 (06:34→12:00)
[2023-04-09 06:40] LABS: CREATININE 1.8 mg/dL (0.6-1.0)
[2023-04-09 06:42] LABS: DIFFERENTIAL COMMENT 1
[2023-04-09] MEDS: INSULIN LISPRO 100 UNITS/ML SUBCUT SCH ×4 (08:00→21:43)
[2023-04-09] MEDS: BLOOD SUGAR DIAGNOSTIC STRIP TEST SCH ×4 (08:19→21:28)
[2023-04-09] MEDS: ARIPIPRAZOLE 5MG TABLET PO SCH ×2 (09:00→12:54)
[2023-04-09] MEDS: AMLODIPINE 5MG TABLET PO SCH ×2 (09:00→12:54)
[2023-04-09 09:12] LABS: BG BASE EXCESS 12.6 mmol/L (-2.0-2.0); BG CARBOXYHEMOGLOBIN 0.8 % (0.5-1.5); BG DEOXYHEMOGLOBIN 2.5 % (0.0-5.0); BG FRACTION INSPIRED OXYGEN 50; BG HCO3 ACT 41.1 mmol/L (22.0-26.0); BG METHEMOGLOBIN 0.3 % (0.0-1.5); BG OXYGEN SATURATION 97.5 % (92.0-98.5); BG OXYHEMOGLOBIN 96.4 % (94.0-97.0); BG PCO2 74.8 mmHg (35.0-45.0); BG PH 7.358 (7.350-7.450); BG PO2 102.6 mmHg (75.0-100.0); BG SAMPLE SITE LEFT RADIAL; BG TOTAL HEMOGLOBIN 12.4 g/dL (12.0-18.0); BG TOTAL RESPIRATORY RATE 28 b/min; BG VENT MODE MASK - BIPAP
[2023-04-09] MEDS: INSULIN GLARGINE 100 UNITS/ML SUBCUT SCH ×2 (11:07→21:45)
[2023-04-09] MEDS: MAGNESIUM OXIDE 400MG TABLET PO SCH (12:52)
[2023-04-09] MEDS: QUETIAPINE FUMARATE 50MG TABLET PO SCH ×2 (12:54→21:28)
[2023-04-09] MEDS: FUROSEMIDE 40MG TABLET PO SCH (12:54)
[2023-04-09 14:20] LABS: PLATELET ESTIMATE MARKEDLY DECREASED
[2023-04-09 14:21] LABS: ANISOCYTOSIS 1+
[2023-04-10] VITALS (19 sets, daily range): BP systolic 91–154; BP diastolic 65–142; PULSE 86–148; RESP 13–42; TEMP 97–98.8
[2023-04-10] MEDS: THEOPHYLLINE ANHYDROUS 80 MG/15 ML 120ML PO SCH ×4 (00:34→17:35)
[2023-04-10] MEDS: HALOPERIDOL LACTATE 5MG/ML VIAL IM PRN (03:36)
[2023-04-10] MEDS: METHYLPREDNISOLONE SOD SUCC 40MG/ML (ACT-O-VIAL) IV SCH ×3 (05:42→22:22)
[2023-04-10] MEDS: HYDRALAZINE HCL 50MG TABLET PO SCH ×3 (05:43→22:22)
[2023-04-10 06:05] LABS: BASOPHILS % 0.8 % (0.0-2.0); EOSINOPHILS % 0.1 % (0.0-5.0); HEMATOCRIT. 35.7 % (36.0-48.0); HEMOGLOBIN. 11.2 g/dL (12.0-16.0); LYMPHOCYTES % 8.7 % (20.0-50.0); MEAN CORPUSCULAR HEMOGLOBIN 26.6 pg (28.0-32.0); MEAN CORPUSCULAR HGB CONC 31.4 g/dL (31.0-37.0); MEAN CORPUSCULAR VOLUME 84.8 fL (81.0-99.0); MEAN PLATELET VOLUME 10.9 fl (7.4-10.4); MONOCYTES % 3.7 % (2.0-8.0); NEUTROPHILS % 86.7 % (40.0-76.0); RED BLOOD CELL COUNT 4.21 mill/uL (4.2-5.4); WHITE BLOOD COUNT 12.5 x1000/uL (4.5-11.0)
[2023-04-10 06:38] LABS: DIFFERENTIAL COMMENT 1
[2023-04-10 06:41] LABS: ADD RBC MORPHOLOGY YES; PLATELET 43 x1000/uL (130-400)
[2023-04-10 07:58] LABS: CALCIUM 8.5 mg/dL (8.7-10.4); CREATININE 1.8 mg/dL (0.6-1.0); POTASSIUM 4.5 mEq/L (3.5-5.1)
[2023-04-10] MEDS: AMLODIPINE 5MG TABLET PO SCH (08:10)
[2023-04-10] MEDS: ARIPIPRAZOLE 5MG TABLET PO SCH ×2 (08:11→17:34)
[2023-04-10] MEDS: FUROSEMIDE 40MG TABLET PO SCH (08:11)
[2023-04-10] MEDS: QUETIAPINE FUMARATE 50MG TABLET PO SCH ×2 (08:11→22:19)
[2023-04-10] MEDS: MAGNESIUM OXIDE 400MG TABLET PO SCH (08:19)
[2023-04-10] MEDS: BLOOD SUGAR DIAGNOSTIC STRIP TEST SCH ×4 (08:23→21:00)
[2023-04-10] MEDS: INSULIN LISPRO 100 UNITS/ML SUBCUT SCH ×4 (08:24→22:24)
[2023-04-10] MEDS ORDERED: AMIODARONE HCL 200 MG TABLET PO SCH (09:00)
[2023-04-10] MEDS: INSULIN GLARGINE 100 UNITS/ML SUBCUT SCH ×2 (10:23→22:23)
[2023-04-10] MEDS: LORAZEPAM 2MG/ML INJ IV PRN (14:20)
[2023-04-10] MEDS ORDERED: AMIODARONE HCL 900 MG in DEXT 5% WATER 482 ML IV SCH (14:30)
[2023-04-10] MEDS ORDERED: AMIODARONE 150MG/100ML PREMIX 100 ML IV NR (14:30)
[2023-04-10 15:32] LABS: ANISOCYTOSIS 2+; PLATELET ESTIMATE MARKEDLY DECREASED
[2023-04-10] MEDS: AMLODIPINE 2.5MG TABLET PO SCH (17:35)
[2023-04-10] MEDS: AMIODARONE HCL 200 MG TABLET PO SCH (22:21)
[2023-04-11] VITALS (14 sets, daily range): BP systolic 96–124; BP diastolic 57–106; PULSE 88–104; RESP 10–41; TEMP 97–99.4
[2023-04-11] MEDS: THEOPHYLLINE ANHYDROUS 80 MG/15 ML 120ML PO SCH ×2 (00:03→06:05)
[2023-04-11] MEDS: HALOPERIDOL LACTATE 5MG/ML VIAL IM PRN (00:44)
[2023-04-11] MEDS: HYDRALAZINE HCL 50MG TABLET PO SCH ×3 (06:00→21:46)
[2023-04-11] MEDS: METHYLPREDNISOLONE SOD SUCC 40MG/ML (ACT-O-VIAL) IV SCH ×3 (06:05→21:47)
[2023-04-11 09:16] LABS: BG CARBOXYHEMOGLOBIN 0.5 % (0.5-1.5); BG DEOXYHEMOGLOBIN 1.9 % (0.0-5.0); BG FRACTION INSPIRED OXYGEN 50; BG HCO3 ACT 35.4 mmol/L (22.0-26.0); BG METHEMOGLOBIN 0.3 % (0.0-1.5); BG OXYGEN SATURATION 98.1 % (92.0-98.5); BG OXYHEMOGLOBIN 97.3 % (94.0-97.0); BG PCO2 51.6 mmHg (35.0-45.0); BG PH 7.454 (7.350-7.450); BG PO2 112.7 mmHg (75.0-100.0); BG SAMPLE SITE RIGHT RADIAL; BG TOTAL HEMOGLOBIN 11.7 g/dL (12.0-18.0); BG TOTAL RESPIRATORY RATE 29 b/min; BG VENT MODE MASK - BIPAP
[2023-04-11] MEDS: ARIPIPRAZOLE 5MG TABLET PO SCH ×2 (09:58→16:47)
[2023-04-11] MEDS: QUETIAPINE FUMARATE 50MG TABLET PO SCH ×2 (09:58→20:56)
[2023-04-11] MEDS: FUROSEMIDE 40MG TABLET PO SCH (09:58)
[2023-04-11] MEDS: INSULIN LISPRO 100 UNITS/ML SUBCUT SCH ×4 (10:00→21:02)
[2023-04-11] MEDS: INSULIN GLARGINE 100 UNITS/ML SUBCUT SCH ×2 (10:01→21:39)
[2023-04-11] MEDS: MAGNESIUM OXIDE 400MG TABLET PO SCH (10:09)
[2023-04-11] MEDS: AMIODARONE HCL 200 MG TABLET PO SCH ×2 (10:09→16:48)
[2023-04-11] MEDS: AMLODIPINE 2.5MG TABLET PO SCH ×2 (10:10→17:00)
[2023-04-11] MEDS: ACETAMINOPHEN 325MG TABLET PO PRN (10:25)
[2023-04-11] MEDS: BLOOD SUGAR DIAGNOSTIC STRIP TEST SCH (20:44)
[2023-04-12] VITALS (32 sets, daily range): BP systolic 69–154; BP diastolic 40–124; PULSE 81–138; RESP 16–53; TEMP 96.9–101.5
[2023-04-12] MEDS: LORAZEPAM 2MG/ML INJ IV PRN (03:37)
[2023-04-12] MEDS: METHYLPREDNISOLONE SOD SUCC 40MG/ML (ACT-O-VIAL) IV SCH ×3 (05:49→22:46)
[2023-04-12] MEDS: HYDRALAZINE HCL 50MG TABLET PO SCH (06:00)
[2023-04-12 06:59] LABS: CALCIUM 8.6 mg/dL (8.7-10.4); CARBON DIOXIDE 36 mEq/L (21-32); CHLORIDE 92 mEq/L (98-107); GLUCOSE 146 mg/dL (70-105); POTASSIUM 5.4 mEq/L (3.5-5.1); SODIUM 132 mEq/L (136-145)
[2023-04-12 07:00] LABS: CREATININE 2.5 mg/dL (0.6-1.0); DIGOXIN < 0.1 ng/mL (0.8-2.0); UREA NITROGEN BLOOD 110 mg/dL (9-23)
[2023-04-12 07:30] LABS: HEMATOCRIT. 32.6 % (36.0-48.0); HEMOGLOBIN. 10.5 g/dL (12.0-16.0); MEAN CORPUSCULAR HEMOGLOBIN 26.5 pg (28.0-32.0); MEAN CORPUSCULAR HGB CONC 32.3 g/dL (31.0-37.0); RED BLOOD CELL COUNT 3.98 mill/uL (4.2-5.4); RED CELL DISTRIBUTION WIDTH 19.7 % (11.6-14.6); WHITE BLOOD COUNT 10.4 x1000/uL (4.5-11.0)
[2023-04-12 08:28] LABS: DIFFERENTIAL COMMENT 1; PLATELET 12 x1000/uL (130-400)
[2023-04-12] MEDS: ARIPIPRAZOLE 5MG TABLET PO SCH ×2 (08:31→17:00)
[2023-04-12] MEDS: FUROSEMIDE 40MG TABLET PO SCH (08:31)
[2023-04-12] MEDS: AMLODIPINE 2.5MG TABLET PO SCH (08:32)
[2023-04-12] MEDS: MAGNESIUM OXIDE 400MG TABLET PO SCH (09:00)
[2023-04-12] MEDS: INSULIN GLARGINE 100 UNITS/ML SUBCUT SCH ×2 (09:47→22:00)
[2023-04-12] MEDS: INSULIN LISPRO 100 UNITS/ML SUBCUT SCH ×3 (09:49→22:02)
[2023-04-12] MEDS: QUETIAPINE FUMARATE 50MG TABLET PO SCH ×2 (09:53→21:00)
[2023-04-12] MEDS: AMIODARONE HCL 200 MG TABLET PO SCH ×2 (09:53→17:00)
[2023-04-12] MEDS ORDERED: SODIUM BICARBONATE 8.4% 1 MEQ/ML 50ML SYR IV NR (11:00)
[2023-04-12] MEDS ORDERED: DEXTROSE 50% WATER 50ML SYRINGE IV NR (11:00)
[2023-04-12] MEDS ORDERED: INSULIN REGULAR (HUMULIN R) 300UNITS/3ML VIAL IV NR (11:15)
[2023-04-12] MEDS ORDERED: CALCIUM GLUCONATE 1GM PREMIX 50 ML IV NR (11:30)
[2023-04-12] MEDS ORDERED: SODIUM CHLORIDE 0.9% 1,000 ML IV SCH (13:00)
[2023-04-12] MEDS ORDERED: AMIODARONE HCL 150 MG in DEXT 5% WATER 100 ML IV ONE (14:15)
[2023-04-12] MEDS ORDERED: ACETAZOLAMIDE SODIUM 500MG/VIAL IV NR (14:30)
[2023-04-12] MEDS ORDERED: AMIODARONE HCL 900 MG in DEXT 5% WATER 500 ML IV PRN (14:45)
[2023-04-12] MEDS: AMIODARONE HCL 900 MG in DEXT 5% WATER 500 ML IV SCH (14:45)
[2023-04-12] MEDS ORDERED: AMIODARONE HCL 900 MG in DEXT 5% WATER 500 ML IV SCH (15:00)
[2023-04-12] MEDS ORDERED: AMIODARONE 150MG/100ML PREMIX 100 ML IV NR (15:00)
[2023-04-12 16:56] LABS: ANISOCYTOSIS 2+; PLATELET ESTIMATE MARKEDLY DECREASED
[2023-04-12] MEDS ORDERED: ACETAMINOPHEN 650MG SUPP PR PRN (17:00)
[2023-04-12] MEDS: CEFEPIME 1,000 MG in DEXTROSE 5% WATER 50 ML IV SCH (17:23)
[2023-04-12 18:35] LABS: FIBRINOGEN 577 mg/dL (200-400); INR 1.2; PROTHROMBIN TIME 12.8 sec (9.6-11.0)
[2023-04-12 18:38] LABS: D-DIMER > 35.20 mg/L FEU (<0.50)
[2023-04-12] MEDS ORDERED: SODIUM CHLORIDE 0.9% 1000ML BAG (SEPSIS BOLUS) IV NR (21:00)
[2023-04-12] MEDS: BLOOD SUGAR DIAGNOSTIC STRIP TEST SCH (21:59)
[2023-04-12] MEDS: NOREPINEPHRINE 8MG/250ML PMX 250 ML IV PRN (22:28)
[2023-04-12 22:54] LABS: BG BASE EXCESS 2.4 mmol/L (-2.0-2.0); BG CARBOXYHEMOGLOBIN 0.8 % (0.5-1.5); BG DEOXYHEMOGLOBIN 22.3 % (0.0-5.0); BG FRACTION INSPIRED OXYGEN 100; BG HCO3 ACT 32.4 mmol/L (22.0-26.0); BG METHEMOGLOBIN 0.2 % (0.0-1.5); BG OXYGEN SATURATION 77.5 % (92.0-98.5); BG OXYHEMOGLOBIN 76.7 % (94.0-97.0); BG PCO2 84.6 mmHg (35.0-45.0); BG PH 7.201 (7.350-7.450); BG PO2 51.5 mmHg (75.0-100.0); BG SAMPLE SITE RIGHT RADIAL; BG TOTAL HEMOGLOBIN 11.2 g/dL (12.0-18.0); BG VENT MODE VENT - AC
[2023-04-12] MEDS ORDERED: PHENYLEPHRINE 100 MG in DEXT 5% WATER 240 ML IV PRN (23:30)
[2023-04-12] MEDS ORDERED: PROPOFOL 10MG/ML 100ML 100 ML IV PRN (23:30)
[2023-04-12 23:48] LABS: HEMATOCRIT. 29.7 % (36.0-48.0); HEMOGLOBIN. 8.9 g/dL (12.0-16.0); MEAN CORPUSCULAR HEMOGLOBIN 25.6 pg (28.0-32.0); MEAN CORPUSCULAR HGB CONC 29.9 g/dL (31.0-37.0); MEAN CORPUSCULAR VOLUME 85.5 fL (81.0-99.0); MEAN PLATELET VOLUME 9.9 fl (7.4-10.4); RED BLOOD CELL COUNT 3.48 mill/uL (4.2-5.4); RED CELL DISTRIBUTION WIDTH 20.1 % (11.6-14.6); WHITE BLOOD COUNT 14.3 x1000/uL (4.5-11.0)
[2023-04-12 23:55] LABS: DIFFERENTIAL COMMENT 1; PLATELET 15 x1000/uL (130-400)
[2023-04-13] VITALS (30 sets, daily range): BP systolic 44–219; BP diastolic 15–75; PULSE 40–145; RESP 15–32; TEMP 99–99.9
[2023-04-13 00:02] LABS: CALCIUM 6.7 mg/dL (8.7-10.4); CARBON DIOXIDE 30 mEq/L (21-32); CHLORIDE 99 mEq/L (98-107); CREATININE 3.1 mg/dL (0.6-1.0); GLUCOSE 206 mg/dL (70-105); PHOSPHORUS 3.8 mg/dL (2.5-4.9); POTASSIUM 5.2 mEq/L (3.5-5.1); SODIUM 136 mEq/L (136-145)
[2023-04-13] MEDS: NOREPINEPHRINE 8MG/250ML PMX 250 ML IV PRN ×3 (00:10→03:02)
[2023-04-13 00:11] LABS: UREA NITROGEN BLOOD 120 mg/dL (9-23)
[2023-04-13 01:18] LABS: BG CARBOXYHEMOGLOBIN 0.5 % (0.5-1.5); BG DEOXYHEMOGLOBIN 18.5 % (0.0-5.0); BG FRACTION INSPIRED OXYGEN 100; BG HCO3 ACT 31.9 mmol/L (22.0-26.0); BG METHEMOGLOBIN 0.1 % (0.0-1.5); BG OXYGEN SATURATION 81.4 % (92.0-98.5); BG OXYHEMOGLOBIN 80.9 % (94.0-97.0); BG PCO2 82.6 mmHg (35.0-45.0); BG PH 7.204 (7.350-7.450); BG PO2 52.6 mmHg (75.0-100.0); BG SAMPLE SITE RIGHT RADIAL; BG TOTAL HEMOGLOBIN 11.3 g/dL (12.0-18.0); BG VENT MODE VENT - AC
[2023-04-13] MEDS ORDERED: IOHEXOL-350 100 ML BOTTLE ONE (01:58)
[2023-04-13 02:38] LABS: CLARITY URINE TURBID (CLEAR); COLOR URINE BROWN (YELLOW); GLUCOSE URINE NEGATIVE (NEGATIVE); KETONES URINE NEGATIVE (NEGATIVE); PROTEIN URINE 4+ (NEGATIVE)
[2023-04-13 02:39] LABS: NITRITE URINE NEGATIVE (NEGATIVE); OCCULT BLOOD URINE 3+ (NEGATIVE); UROBILINOGEN URINE 0.2 E.U./dL (0.2-1.0)
[2023-04-13 02:43] LABS: LEUKOCYTE ESTERASE URINE 1+ (NEGATIVE)
[2023-04-13 02:48] LABS: RBC URINE TNTC /hpf (0-2)
[2023-04-13 02:57] LABS: SQUAMOUS EPITHELIAL CELL URINE FEW /lpf (RARE/1+)
[2023-04-13] MEDS ORDERED: NOREPINEPHRINE 32 MG in DEXT 5% WATER 218 ML IV PRN (03:00)
[2023-04-13 03:03] LABS: BACTERIA URINE 1+
[2023-04-13] MEDS: CEFEPIME 1,000 MG in DEXTROSE 5% WATER 50 ML IV SCH (03:24)
[2023-04-13 05:17] LABS: LACTIC ACID 75.8 mmol/L (0.4-2.0)
[2023-04-13] MEDS: AMIODARONE HCL 900 MG in DEXT 5% WATER 500 ML IV SCH (05:39)
[2023-04-13 05:42] LABS: HEMATOCRIT. 35.4 % (36.0-48.0); HEMOGLOBIN. 10.4 g/dL (12.0-16.0); MEAN CORPUSCULAR HEMOGLOBIN 25.7 pg (28.0-32.0); MEAN CORPUSCULAR HGB CONC 29.4 g/dL (31.0-37.0); MEAN CORPUSCULAR VOLUME 87.5 fL (81.0-99.0); MEAN PLATELET VOLUME 11.8 fl (7.4-10.4); RED BLOOD CELL COUNT 4.04 mill/uL (4.2-5.4); RED CELL DISTRIBUTION WIDTH 20.6 % (11.6-14.6); WHITE BLOOD COUNT 16.2 x1000/uL (4.5-11.0)
[2023-04-13] MEDS: METHYLPREDNISOLONE SOD SUCC 40MG/ML (ACT-O-VIAL) IV SCH (05:44)
[2023-04-13 05:53] LABS: CALCIUM 7.9 mg/dL (8.7-10.4)
[2023-04-13] MEDS ORDERED: VASOPRESSIN 20 UNIT in SODIUM CHLORIDE 0.9% 99 ML IV PRN (06:00)
[2023-04-13] MEDS ORDERED: EPINEPHRINE 10 MG in SODIUM CHLORIDE 0.9% 240 ML IV PRN (06:15)
[2023-04-13] MEDS: BLOOD SUGAR DIAGNOSTIC STRIP TEST SCH (06:49)
[2023-04-13 07:00] LABS: POTASSIUM 7.1 mEq/L (3.5-5.1)
[2023-04-13 07:01] LABS: PLATELET ESTIMATE MARKEDLY DECREASED; TOXIC VACUOLATION 1+
[2023-04-13 07:06] LABS: ANISOCYTOSIS 1+
[2023-04-13 07:36] LABS: DIFFERENTIAL COMMENT 1
[2023-04-13] MEDS ORDERED: CEFEPIME 1,000 MG in DEXTROSE 5% WATER 50 ML IV SCH (12:00)
[2023-04-13 16:15] LABS: ANISOCYTOSIS 2+; PLATELET ESTIMATE MARKEDLY DECREASED
[2023-04-13 16:16] LABS: HYPOCHROMASIA 1+; PLATELET 15 x1000/uL (130-400)
== END 2023-04-13 12:10 | DRG 133 ==
LOC: ER 22:49 → 8WST 03-19 17:13 → 5EST 03-21 13:46 → 4WST 03-21 21:05 → 5EST 03-22 00:22 → UNDODISIN 03-30 19:35 → MICUSO 04-12 22:15
PROVIDERS: ADMIT Internal Medicine; ATTEND Internal Medicine
PROC: 5A0955A Assistance with Respiratory Ventilation, Greater than 96 Consecutive Hours, High Flow/Velocity Cannula (ICD-10-PCS; 2023-03-21)
PROC: 02HV33Z Insertion of Infusion Device into Superior Vena Cava, Percutaneous Approach (ICD-10-PCS; 2023-03-27)
PROC: B548ZZA Ultrasonography of Superior Vena Cava, Guidance (ICD-10-PCS; 2023-03-27)
PROC: 5A0935A Assistance with Respiratory Ventilation, Less than 24 Consecutive Hours, High Flow/Velocity Cannula (ICD-10-PCS; 2023-03-30)
PROC: 5A0955A Assistance with Respiratory Ventilation, Greater than 96 Consecutive Hours, High Flow/Velocity Cannula (ICD-10-PCS; 2023-03-31)
PROC: 5A0935A Assistance with Respiratory Ventilation, Less than 24 Consecutive Hours, High Flow/Velocity Cannula (ICD-10-PCS; 2023-04-06)
PROC: 5A0935A Assistance with Respiratory Ventilation, Less than 24 Consecutive Hours, High Flow/Velocity Cannula (ICD-10-PCS; 2023-04-07)
PROC: 5A09457 Assistance with Respiratory Ventilation, 24-96 Consecutive Hours, Continuous Positive Airway Pressure (ICD-10-PCS; 2023-04-08)
PROC: 5A0935A Assistance with Respiratory Ventilation, Less than 24 Consecutive Hours, High Flow/Velocity Cannula (ICD-10-PCS; 2023-04-09)
PROC: 5A09457 Assistance with Respiratory Ventilation, 24-96 Consecutive Hours, Continuous Positive Airway Pressure (ICD-10-PCS; 2023-04-09)
PROC: 5A0935A Assistance with Respiratory Ventilation, Less than 24 Consecutive Hours, High Flow/Velocity Cannula (ICD-10-PCS; 2023-04-11)
PROC: 5A09457 Assistance with Respiratory Ventilation, 24-96 Consecutive Hours, Continuous Positive Airway Pressure (ICD-10-PCS; 2023-04-11)
PROC: 5A1935Z Respiratory Ventilation, Less than 24 Consecutive Hours (ICD-10-PCS; principal; 2023-04-12)
PROC: 0BH17EZ Insertion of Endotracheal Airway into Trachea, Via Natural or Artificial Opening (ICD-10-PCS; 2023-04-12)
PROC: 5A12012 Performance of Cardiac Output, Single, Manual (ICD-10-PCS; 2023-04-12)
DX: J96.21 Acute and chronic respiratory failure with hypoxia (principal); N17.0 Acute kidney failure with tubular necrosis; G92.8 Other toxic encephalopathy; I50.33 Acute on chronic diastolic (congestive) heart failure; E46 Unspecified protein-calorie malnutrition; D69.6 Thrombocytopenia, unspecified; E87.3 Alkalosis; I47.10 Supraventricular tachycardia, unspecified; I48.92 Unspecified atrial flutter; E66.2 Morbid (severe) obesity with alveolar hypoventilation; I27.20 Pulmonary hypertension, unspecified; I48.91 Unspecified atrial fibrillation; E88.09 Other disorders of plasma-protein metabolism, not elsewhere classified; I11.0 Hypertensive heart disease with heart failure; J44.1 Chronic obstructive pulmonary disease with (acute) exacerbation; I24.89 Other forms of acute ischemic heart disease; J96.22 Acute and chronic respiratory failure with hypercapnia; F16.90 Hallucinogen use, unspecified, uncomplicated; F20.9 Schizophrenia, unspecified; F31.9 Bipolar disorder, unspecified; N18.9 Chronic kidney disease, unspecified; I07.1 Rheumatic tricuspid insufficiency; F17.210 Nicotine dependence, cigarettes, uncomplicated; F14.10 Cocaine abuse, uncomplicated; M41.9 Scoliosis, unspecified; E11.65 Type 2 diabetes mellitus with hyperglycemia; E87.5 Hyperkalemia; Z91.199 Patient's noncompliance with other medical treatment and regimen due to unspecified reason; Z79.899 Other long term (current) drug therapy; Z81.8 Family history of other mental and behavioral disorders; Z99.81 Dependence on supplemental oxygen; Z78.1 Physical restraint status; Z86.16 Personal history of COVID-19; Z87.01 Personal history of pneumonia (recurrent); Z68.41 Body mass index [BMI] 40.0-44.9, adult; Z79.4 Long term (current) use of insulin
CPT/HCPCS: 31500; 36415; 36573; 36600; 71045; 71275; 80048; 80053; 80061; 80076; 80162; 80320; 81003; 82140; 82375; 82803; 82805; 82962; 83036; 83605; 83735; 83880; 84100; 84145; 84443; 84478; 84484; 85025; 85362; 85379; 85384; 87077; 87186; 92950; 93005; 93306; 94002; 94640; 94660; 99285; A6261; C1725; J0282; J0360; J0610; J0692; J1120; J1630; J1650; J1815; J1940; J2060; J2270; J2370; J2920; J2930; J3105; J3475; J3490; J7030; J7060; J7070; Q0162; Q9967; G0480